=== PATIENT | male | born 1940 | race Caucasian/White ===

== ENCOUNTER 2020-07-02 01:55 | Outpatient (CLI) | payer OTHER, SELFPAY ==
[2020-07-02 19:19] LABS: SARS-CoV-2 RNA PCR Negative
== END 2020-07-02 01:56 | disposition home or self-care (01) ==
LOC: ANHCOVIDDT 01:56
PROVIDERS: PCP Internal Medicine; Visit Provider Internal Medicine Gastroenterology
DX: Z01.812 Encounter for preprocedural laboratory examination (principal); Z20.828 Contact with and (suspected) exposure to other viral communicable diseases
CPT/HCPCS: 87635; C9803; U0003

== ENCOUNTER 2020-07-04 01:16 | Day surgery (SDC) | payer OTHER, SELFPAY ==
[2020-07-01 12:27] VITALS: BMI 24.5
--- NOTE | 2020-07-04 09:54 | WPDGICN ---
Assessment and Plan Assessment and plan (1) Pharyngoesophageal dysphagia: Code(s): R13.14 - Dysphagia, pharyngoesophageal phase Status: Acute (2) PEG (percutaneous endoscopic gastrostomy) adjustment/replacement/removal: Code(s): Z43.1 - Encounter for attention to gastrostomy Status: Acute Assessment and Plan: Patient requires PEG tube for nutritional support. He has significant dysphagia after surgical resection of had neck cancer. And deformity subsequently. Because of deteriorating G-tube patient presents will have endoscopic replacement of PEG tube today. (3) Hx of malignant neoplasm of head and neck: Code(s): Z85.89 - Personal history of malignant neoplasm of other organs and systems Status: Acute GI Consult Note Consult date/time: 07/04/20 09:54 HPI: Nathaniel Guardado is a 79 year old male Seen in evaluation at the request of OFFICE CLERK ASSISTANT Abebe Fisher. Patient has a history of head and neck cancer. He has required a PEG tube for nutritional support. Continues to have difficulty swallowing after his surgery and resection of cancer. Patient has significant dysarthria as well. Peg tube was replaced in July of 2019. In his deteriorated. Replacement will be required. Patient has had difficulties with typical replacement PEG tubes the balloon appears to occlude his stomach. An endoscopic replacement will be required. Review of Systems Review of Systems: All systems reviewed & are unremarkable except as noted in HPI and below PMFSH Past Medical History Medical History (Updated 06/05/20 @ 09:17 by Abebe Fisher APRN) Cancer Diabetes HTN (hypertension) Hypercholesterolemia Family History Family History Father Acute myocardial infarction Social History Social History Smoking status: Never smoker Alcohol intake: never Substance use: never Substance use type: does not use Living arrangements: with family Spiritual care concerns: No Meds Home Medications and Allergies Home Medications Medication Instructions Recorded Confirmed Type aspirin 81 mg PO DAILY 08/08/19 07/01/20 History calcium carbonate [Calcium 600] 600 mg PO BID 08/08/19 07/01/20 History cholecalciferol (vitamin D3) 1,000 unit PO DAILY 08/08/19 07/01/20 History [Vitamin D3] hydrocodone-acetaminophen 1 tablet PO Q8H PRN 08/08/19 07/01/20 History ondansetron 4 mg disintegrating 4 mg PO Q6H PRN #10 tablet 10/03/19 07/01/20 Rx tablet levothyroxine 50 mcg tablet 50 mcg PO DAILY #90 tablet 03/17/20 07/01/20 Rx omeprazole 40 mg capsule,delayed 40 mg PO DAILY #90 cap 03/19/20 07/01/20 Rx release glipizide 2.5 mg tablet, extended 2.5 mg PO DAILY #90 tablet 05/13/20 07/01/20 Rx release 24 hr metformin 1,000 mg tablet 1,000 mg PO BID #180 tablet 05/23/20 07/01/20 Rx lisinopril 5 mg tablet 5 mg PO DAILY #90 tablet 06/11/20 07/01/20 Rx simvastatin 20 mg tablet 20 mg PO DAILY #90 tablet 06/11/20 07/01/20 Rx vitamin B complex [Super B-50 1 cap PO DAILY 07/01/20 07/01/20 History Complex] Allergies Allergy/AdvReac Type Severity Reaction Status Date / Time Penicillins Allergy Mild Rash Verified 07/01/20 11:51 Exam Narrative: Exam Narrative: Physical exam reveals patient to be alert. Vital signs stable. HEENT exam reveals deformity to his throat after surgical resection. Has significant dysarthria.. Lungs are clear to auscultation and percussion. Heart is without murmur or extra sounds. Abdominal exam reveals PEG tube in good position the tube itself is deteriorated.
[2020-07-04] MEDS: LACTATED RINGERS 1,000 ML 150 ML IV CONT (10:11)
[2020-07-04 10:13] VITALS: BP 174/105; PULSE 94; RESP 22; TEMP 36.6; O2SAT 96; BMI 23.4
[2020-07-04 10:24] LABS: Glucose Point of Care 107 (65-105)
--- NOTE | 2020-07-04 10:29 | WPDANESEPPF ---
Anes - Initial Pre Proc Eval Procedure: Operation Date: 07/04/20 10:30 Proposed Procedures p Percutaneous Endoscopic Gastrostomy Replacement - Vipul Leal MD Date/Time: 07/04/20 10:29 Surgeon: Vipul Leal MD Pre Op Diagnosis: Malfunctioning G-Tube Patient Data Age: 79 Gender: M Height: 5 ft 3 in Weight: 60 kg Last Vital Signs Temp 98 F 07/04/20 10:13 Pulse 94 07/04/20 10:13 Resp 22 H 07/04/20 10:13 BP 174/105 H 07/04/20 10:13 Pulse Ox 96 07/04/20 10:13 Allergies Allergy/AdvReac Type Severity Reaction Status Date / Time Penicillins Allergy Mild Rash Verified 07/01/20 11:51 Home Medications Medication Instructions Recorded Confirmed Type aspirin 81 mg PO DAILY 08/08/19 07/01/20 History calcium carbonate [Calcium 600] 600 mg PO BID 08/08/19 07/01/20 History cholecalciferol (vitamin D3) 1,000 unit PO DAILY 08/08/19 07/01/20 History [Vitamin D3] hydrocodone-acetaminophen 1 tablet PO Q8H PRN 08/08/19 07/01/20 History ondansetron 4 mg disintegrating 4 mg PO Q6H PRN #10 tablet 10/03/19 07/01/20 Rx tablet levothyroxine 50 mcg tablet 50 mcg PO DAILY #90 tablet 03/17/20 07/01/20 Rx omeprazole 40 mg capsule,delayed 40 mg PO DAILY #90 cap 03/19/20 07/01/20 Rx release glipizide 2.5 mg tablet, extended 2.5 mg PO DAILY #90 tablet 05/13/20 07/01/20 Rx release 24 hr metformin 1,000 mg tablet 1,000 mg PO BID #180 tablet 05/23/20 07/01/20 Rx lisinopril 5 mg tablet 5 mg PO DAILY #90 tablet 06/11/20 07/01/20 Rx simvastatin 20 mg tablet 20 mg PO DAILY #90 tablet 06/11/20 07/01/20 Rx vitamin B complex [Super B-50 1 cap PO DAILY 07/01/20 07/01/20 History Complex] Laboratory Tests 07/04/20 10:20 POC Capillary Glucose 107 mg/dl mg/dl (65-105) Patient hx anesthesia problems: none Family hx anesthesia problems: none PMFSH Past Medical History Medical History (Updated 07/04/20 @ 10:28 by Clifton Posadas MD) Adult hypothyroidism Cancer Diabetes Essential (primary) hypertension HTN (hypertension) Hypercholesterolemia Hyperlipidemia LDL goal <70 Type 2 diabetes mellitus without complication, without long-term current use of insulin Family History Family History Father Acute myocardial infarction Social History Social History Smoking status: Never smoker Alcohol intake: never Substance use: never Substance use type: does not use Living arrangements: with family Spiritual care concerns: No Anes - Eval Final PreProcedure Day of Procedure 07/04/20 10:29 Patient weight: normal Heart: regular rate and rhythm Lungs: clear to auscultation Airway: Mallampati scale class III Neurological: alert and oriented Last oral intake: >/= 8 hours ASA classification: IV Emergent: no Anesthetic plan: proceed Anesthesia type and monitoring: general GIVS and standard monitoring Informed Consent: The patient's anesthetic plan and its attendant risks and benefits were discussed with the patient/family/POA. Questions were solicited and answers provided to the satisfaction of the patient/family/POA.
[2020-07-04 11:18] VITALS: BP 103/68; PULSE 74; RESP 18; O2SAT 100
[2020-07-04 11:28] VITALS: BP 134/89; PULSE 74; RESP 18; O2SAT 100
[2020-07-04 11:38] VITALS: BP 144/95; PULSE 84; RESP 18; O2SAT 100
== END 2020-07-04 12:00 | disposition home or self-care (01) ==
PROVIDERS: PCP Internal Medicine; Visit Provider Internal Medicine Gastroenterology
PROC: 0DH63UZ Insertion of Feeding Device into Stomach, Percutaneous Approach (ICD-10-PCS; CPT 43246; principal; 2020-07-04 10:30)
DX: R13.14 Dysphagia, pharyngoesophageal phase (principal); Z43.1 Encounter for attention to gastrostomy; Z85.89 Personal history of malignant neoplasm of other organs and systems; I10 Essential (primary) hypertension; E78.00 Pure hypercholesterolemia, unspecified; E11.9 Type 2 diabetes mellitus without complications; Z79.82 Long term (current) use of aspirin; Z79.84 Long term (current) use of oral hypoglycemic drugs; E03.9 Hypothyroidism, unspecified
CPT/HCPCS: 43246; 99214; G0463; J2001; J2704; J7120

== ENCOUNTER 2020-07-07 14:21 | Inpatient (IN) | payer OTHER, SELFPAY ==
--- NOTE | ~2020-07-07 | XR_ITS ---
EXAMINATION: XR chest 1V portable INDICATION: Abdominal pain, recent PEG tube placement TECHNIQUE: Portable AP chest at 1452 hours COMPARISON: 07/13/2019 FINDINGS: The lung volumes are low. No acute airspace opacities are identified. The heart size is nor mal. Vertebroplasty change is noted in the midthoracic spine. There are surgical clips in the left ne ck. Chronic gaseous distention of the colon is noted. IMPRESSION: 1. No acute cardiopulmonary abnormality. Reviewed, dictated and finalized at location A.
--- NOTE | ~2020-07-07 | CT_ITS ---
EXAMINATION: CT abdomen pelvis w con EXAM DATE: 07/07/2020 15:34 INDICATION: Abdominal pain. TECHNIQUE: Spiral CT of the abdomen and pelvis was performed following intravenous injection of 100 m L Omnipaque 350. Axial, coronal and sagittal images were reviewed. The dose-length product (DLP) fo r this examination was 528.06 mGy-cm. The exposure was tailored according to patient size (auto mA e xposure control), and iterative reconstruction (ASIR) was used as additional dose reduction technique . Comparison is made to prior examination from 07/13/2019. FINDINGS: The liver, spleen, adrenal glands and pancreas are unremarkable. Gallbladder is unremarkab le. No biliary obstruction. Portal and splenic veins are patent. Kidneys enhance symmetrically. T here is no hydronephrosis. There are bilateral calyceal stones up to 5 mm. Patient has likely had pr ostatectomy. The bladder is unremarkable. There is no retroperitoneal or pelvic lymphadenopathy. There is moderate scattered arteriosclerotic disease. The appendix is not positively visualized. T here is no pericecal inflammatory change to suggest appendicitis. There is a gastrostomy tube in po sition. Some inflammation surrounding the gastrostomy tube tract, also several tiny foci of gas withi n this location. There is large amount of loose colonic stool and gas, correlate for diarrhea. This is throughout the colon, could be colonic ileus or gastroenteritis. No colonic wall edema or portal venous gas. The he art is normal in size. There are no pericardial or pleural effusions. Mild basilar bronchiectasis. There are no osteoblastic or osteolytic lesions identified. There is mild to moderate mid lumbar lev oscoliosis. IMPRESSION: 1. Large amount of loose colonic stool and gas, could be ileus or gastroenteritis. Correlate for timi rrhea. 2. Fat stranding along gastrostomy tract with several tiny foci of free intraperitoneal gas, could b e from recent tube manipulation or placement. No abscess. 3. Collateral nephrolithiasis. Reviewed, dictated and finalized at location A. IMPRESSION: 1. Large amount of loose colonic stool and gas, could be ileus or gastroenteri tis. Correlate for diarrhea. 2. Fat stranding along gastrostomy tract with several tiny foci of free intrap eritoneal gas, could be from recent tube manipulation or placement. No abscess. 3. Collateral nephrolithiasis.
--- NOTE | ~2020-07-07 | XR_ITS ---
EXAMINATION: XR G tube evaluation w imaging EXAM DATE: 07/07/2020 16:21 INDICATION: Gastrostomy tube evaluation. TECHNIQUE: Frontal projection(s) of the abdomen for interpretation. Comparison is made to prior exami nation from 09/24/2019. FINDINGS: Again there is severe distention of the colon. Also some moderately distended small bowel. Probably ileus or gastroenteritis. There is a gastrostomy tube in position. This has been injected with contrast. There is contrast outl ining normal rugal folds, pooling in the gastric cardia and gastric antrum. No evidence of extralumin al contrast. IMPRESSION: 1. Severely distended bowel, chronic finding. 2. Gastrostomy tube in position. Reviewed, dictated and finalized at location A.
--- NOTE | 2020-07-07 14:19 | ED.ABDPAIN ---
HPI - Abdominal Pain General Chief Complaint: Abdominal Pain Stated Complaint: abd pain Source: patient and EMS Mode of arrival: EMS Limitations: no limitations History of Present Illness HPI narrative: Patient is a 79-year-old male with a history of head and neck cancer, dysphasia, status post PEG tube replacement July 04, hypothyroidism, type 2 diabetes, hypertension who presents for evaluation of abdominal pain. Patient reports since PEG tube was replaced on the by Dr. Toscano, patient has had some associated abdominal pain and increased abdominal distention with feedings. He reports nausea and dry heaving. He reports constipation, decreased flatus as well. He reports mild abdominal distention, pain is aching in nature at times sharp throughout his abdomen. He denies fever or chills. No chest pain, rhinorrhea, congestion, or cough. No current shortness of breath. Patient denies any dysuria or hematuria. He reports minimal to no oral intake by mouth at this point. Related Data Home Medications Medication Instructions Recorded Confirmed aspirin 81 mg PO DAILY 08/08/19 07/01/20 calcium carbonate [Calcium 600] 600 mg PO BID 08/08/19 07/01/20 cholecalciferol (vitamin D3) 1,000 unit PO DAILY 08/08/19 07/01/20 [Vitamin D3] hydrocodone-acetaminophen 1 tablet PO Q8H PRN 08/08/19 07/01/20 vitamin B complex [Super B-50 1 cap PO DAILY 07/01/20 07/01/20 Complex] Allergies Allergy/AdvReac Type Severity Reaction Status Date / Time Penicillins Allergy Mild Rash Verified 07/01/20 11:51 Review of Systems Review of Systems: Narrative: CONSTITUTIONAL: Denies fever ENT: Denies rhinorrhea, congestion, sore throat, or otalgia. CARDIOVASCULAR: Denies chest pain, palpitations, or edema. RESPIRATORY: Denies cough or dyspnea. GASTROINTESTINAL: Reports abdominal pain, nausea, constipation GENITOURINARY: Denies dysuria or hematuria. SKIN: Denies rash or itching. MUSCULOSKELETAL: Denies back pain, joint pain, or myalgia. NEUROLOGIC: Denies headache, numbness, or weakness. [facility] Past Medical History Medical History (Updated 07/07/20 @ 19:46 by Abebe Cm MD) Adult hypothyroidism Cancer Diabetes Essential (primary) hypertension HTN (hypertension) Hypercholesterolemia Hyperlipidemia LDL goal <70 Type 2 diabetes mellitus without complication, without long-term current use of insulin Surgical History Surgical History (Updated 07/07/20 @ 19:42 by Abebe Cm MD) S/P percutaneous endoscopic gastrostomy (PEG) tube placement Family History Family History Father Acute myocardial infarction Social History Social History Smoking status: Never smoker Alcohol intake: never Substance use: never Substance use type: does not use Spiritual care concerns: No Exam Narrative: Exam Narrative: GENERAL: Awake, alert, conversant, chronically ill-appearing, elderly HEAD: Normocephalic, atraumatic. EYES: PERRLA and EOMI. ENT: Nares clear, no rhinorrhea or epistaxis. Mucous membranes dry. NECK: Supple. CHEST: No respiratory distress, breathing even and non labored HEART: Tachycardic rate, sinus rhythm ABDOMEN: Mildly distended, tender throughout, positive guarding, no rebound, PEG tube in place left upper quadrant, no active drainage, no excoriation EXTREMITIES: Normal range of motion. No edema. SKIN: Pale, dry, no rash. NEURO:No focal deficits. Alert and oriented x3 Course Vital Signs Vital signs: Vital Signs Temperature 36.6 C 07/07/20 14:20 Pulse Rate 121 H 07/07/20 14:20 Respiratory Rate 18 07/07/20 14:20 Blood Pressure 163/101 H 07/07/20 14:20 Pulse Oximetry 97 07/07/20 14:20 Temperature 36.6 C 07/07/20 14:20 Pulse Rate 113 H 07/07/20 19:23 Respiratory Rate 20 07/07/20 19:23 Blood Pressure 126/90 07/07/20 19:23 Pulse Oximetry 99 07/07/20 19:23 [facility] - Abd
[2020-07-07 14:20] VITALS: BP 163/101; PULSE 121; RESP 18; TEMP 36.6; O2SAT 97
--- NOTE | 2020-07-07 14:38 | ECG_ITS ---
Measurements Intervals [place] Rate: 120 P: 48 NE: 120 QRS: -42 QRSD: 90 T: 33 QT: 339 QTc: 479 Interpretive Statements SINUS TACHYCARDIA VENTRICULAR PREMATURE COMPLEX LEFT AXIS DEVIATION POOR R WAVE PROGRESSION, ANTERIOR LEADS BASELINE ARTIFACT- I, II, III, AVR, AVL, AVF, V1, V3, V6 ABNORMAL ECG Electronically Signed On 07-07-2020 14:59:45 CDT by Estrada Correa D.O.
[2020-07-07 14:55] LABS: Basophils Percent Auto 0.2 % (0.2-1.2); Eosinophils Absolute Auto 0.1 K/mm3 (0-0.3); Eosinophils Percent Auto 0.5 % (0-4.4); Hematocrit 38.8 % (42.0-52.0); Immature Granulocyte Absolute 0.08 K/mm3 (0.00-0.031); Immature Granulocyte Percent A 0.6 % (0-0.5); Lymphocytes Absolute Auto 0.29 K/mm3 (0.9-3.2); Lymphocytes Percent Auto 2.3 % (18.3-44.2); Mean Corpuscular HGB Conc 33.5 g/dl (32-36); Mean Corpuscular Hemoglobin 32.5 pg (26-34); Mean Platelet Volume 10.7 fl (7.4-10.4); Monocytes Percent Auto 7.8 % (2.6-8.5); Neutrophils Absolute Auto 11.3 K/mm3 (1.3-6.7); Neutrophils Percent Auto 88.6 % (45.5-73.1); Platelet Count Result 242 k/mm3 (150-375); Red Cell Distribution Width 12.9 % (11.5-14.5); White Blood Count 12.8 K/mm3 (4.5-10.0)
[2020-07-07 15:00] LABS: Alanine Aminotransferase 18 U/L (4-50); Albumin Level 4.5 g/dL (3.5-5.1); Alkaline Phosphatase 82 U/L (38-126); Anion Gap 15 mmol/L (8-16); Aspartate Amino Transferase 23 U/L (17-59); Bilirubin,Total 0.5 mg/dL (0.2-1.3); Blood Urea Nitrogen 32 mg/dL (9-20); Calcium 10.9 mg/dL (8.4-10.2); Carbon Dioxide 30 mmol/L (22-30); Chloride 90 mmol/L (98-107); Estimated CRCL calculation 72 ml/min; Estimated Glomerular Filt Rate > 60; Glucose 163 mg/dL (75-110); Lipase 27 U/L (23-300); Potassium 4.5 mmol/L (3.4-5.0); Sodium 135 mmol/L (137-145)
[2020-07-07 15:08] LABS: Lactic Acid Reflex 3.7 mmol/L (0.7-2.1)
[2020-07-07 15:14] LABS: Prothrombin Time 12.9 Seconds (11.1-14.7)
[2020-07-07 15:15] LABS: Partial Thromboplastin Time 30.7 SECONDS (22.3-36.8)
[2020-07-07] MEDS: MORPHINE SULFATE (*CRX) 4 MG/ML INJ IV PUSH (15:20)
[2020-07-07] MEDS: SODIUM CHLORIDE 0.9% IV 1,000 ML 999 ML IV CONT (15:20)
[2020-07-07] MEDS: ONDANSETRON INJ 4 MG/2 ML VIAL IV PUSH (15:20)
[2020-07-07] MEDS: SODIUM CHLORIDE 0.9% IV 500 ML 999 ML IV CONT (15:21)
[2020-07-07] MEDS: metroNIDAZOLE 500 MG/ISO 100ML 500 MG/100 ML BAG 100 MG IVPB ×2 (16:08→21:23)
[2020-07-07 16:28] LABS: Add Urine Microscopic? YES; Appearance Urine Clear (Clear); Bacteria Urine Trace /hpf; Bilirubin Urine Negative (Negative); Blood Urine Negative (Negative); Color Urine Yellow (Yellow); Glucose Urine UA Negative (Negative); Ketones Urine Negative (Negative); Leukocyte Esterase Ur Negative LEU/UL (Negative); Mucus Urine Rare /lpf; Nitrate Urine Negative (Negative); Protein Urine 1+ mg/dL (Negative); RBC Urine 0-2 /hpf (0-2); Urobilinogen Urine Negative mg/dL (<2.0); WBC Urine 0-3 /hpf
[2020-07-07 16:32] LABS: Specific Grav Ur 1.039 (1.001-1.035)
--- NOTE | 2020-07-07 16:41 | WPDGICN ---
Assessment and Plan Assessment and plan (1) Gastrostomy status: Code(s): Z93.1 - Gastrostomy status Status: Acute Assessment and Plan: CT scan of the abdomen reveals a small amount of air at the gastric cutaneous PEG site. Says back that this may represent localized infection. Plan is for Gastrografin study through the G-tube to document that it is in good position. Broad-spectrum antibiotics are encouraged for interval course of therapy. We will follow with you. Peg tube feeding should be held at this time. (2) Ileus: Code(s): K56.7 - Ileus, unspecified Status: Acute Assessment and Plan: Patient appears to have an ileus. Appears to have developed after replacement of the PEG tube. Likely from irritation at the PEG site manipulation. Plan is for patient be NPO. Because of head neck cancer placement of an NG tube may be dangerous. Plan is to open the G-tube and hopefully decompress the stomach through the G-tube. We will follow with you. Plan to monitor with serial KUB ease. (3) Hx of malignant neoplasm of head and neck: Code(s): Z85.89 - Personal history of malignant neoplasm of other organs and systems Status: Acute (4) Personal history of malignant neoplasm of prostate: Code(s): Z85.46 - Personal history of malignant neoplasm of prostate Status: Acute GI Consult Note Consult date/time: 07/07/20 16:41 HPI: Nathaniel Guardado is a 79 year old male I am asked to see at the request of the ER. Patient has abdominal distention and pain after PEG replacement on Tuesday 4 days ago. Patient has a distant history of head and neck cancer. He subsequently required to PEG tube placement. Peg tube had deteriorated and was replaced on Tuesday 4 days ago by an endoscopic replacement. 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 Patient tolerated the tube however he has developed abdominal distention with associated with regurgitation nausea. He has tenderness at the PEG site. Review of Systems Review of Systems: All systems reviewed & are unremarkable except as noted in HPI and below PMFSH Past Medical History Medical History Adult hypothyroidism Cancer Diabetes Essential (primary) hypertension HTN (hypertension) Hypercholesterolemia Hyperlipidemia LDL goal <70 Type 2 diabetes mellitus without complication, without long-term current use of insulin Family History Family History Father Acute myocardial infarction Social History Social History Smoking status: Never smoker Alcohol intake: never Substance use: never Substance use type: does not use Spiritual care concerns: No Meds Home Medications and Allergies Home Medications Medication Instructions Recorded Confirmed Type aspirin 81 mg PO DAILY 08/08/19 07/01/20 History calcium carbonate [Calcium 600] 600 mg PO BID 08/08/19 07/01/20 History cholecalciferol (vitamin D3) 1,000 unit PO DAILY 08/08/19 07/01/20 History [Vitamin D3] hydrocodone-acetaminophen 1 tablet PO Q8H PRN 08/08/19 07/01/20 History ondansetron 4 mg disintegrating 4 mg PO Q6H PRN #10 tablet 10/03/19 07/01/20 Rx tablet levothyroxine 50 mcg tablet 50 mcg PO DAILY #90 tablet 03/17/20 07/01/20 Rx omeprazole 40 mg capsule,delayed 40 mg PO DAILY #90 cap 03/19/20 07/01/20 Rx release glipizide 2.5 mg tablet, extended 2.5 mg PO DAILY #90 tablet 05/13/20 07/01/20 Rx release 24 hr metformin 1,000 mg tablet 1,000 mg PO BID #180 tablet 05/23/20 07/01/20 Rx lisinopril 5 mg tablet 5 mg PO DAILY #90 tablet 06/11/20 07/01/20 Rx simvastatin 20 mg tablet 20 mg PO DAILY #90 tablet 06/11/20 07/01/20 Rx vitamin B complex [Super B-50 1 cap PO DAILY 07/01/20 07/01/20 History Complex] Allerg
[2020-07-07 16:56] VITALS: BP 142/103; PULSE 118; RESP 20; O2SAT 93
[2020-07-07] MEDS: TETANUS,DIPHTHERIA,AC PERTUSSIS ADULT (0.5 ML) BOOSTRIX IM (17:37)
[2020-07-07 17:57] LABS: Reflex Lactic Acid Yes or No Add Lactic
--- NOTE | 2020-07-07 17:59 | PC.NURSE ---
valle cath bag attached to g-tube. gastric content returned
[2020-07-07 19:23] VITALS: BP 126/90; PULSE 113; RESP 20; O2SAT 99
--- NOTE | 2020-07-07 19:37 | PM.IMHP ---
H&P: HPI History of Present Illness Date/Time: 07/07/20 19:37 Chief complaint: Ileus, sepsis, dehydration Narrative: This is a pleasant 79-year-old diabetic male with known history of previous head and neck cancer status post PEG tube replacement on July 04, 2012 secondary to dysphagia who presented to the hospital [facility] with left-sided abdominal pain. The patient mentions that he had his PEG tube replaced this past Tuesday and the very next day he started to notice he had abdominal distension and left-sided abdominal discomfort. Since then he has had increasing left-sided abdominal discomfort, nausea and dry heaving. He was giving himself tube feedings through his new PEG tube this morning around 10:00 a.m. The patient denies any fever, chills, vomiting, cough, hematemesis, shortness of breath, chest pain, dysuria, hematuria, diarrhea, or rectal bleeding. The patient was evaluated emergency room this evening and did meet criteria for sepsis with tachycardia, tachypnea, leukocytosis and elevated lactic acid. Patient was treated with IV antibiotics to cover for enteric bacteria. CT abdomen pelvis demonstrated a large amount of loose colonic stool and gas. Fat stranding along gastrostomy tract with several tiny foci of free intraperitoneal gas, could be from recent tube manipulation or placement. No abscess. The patient has his PEG tube attached to low intermittent suction at this time. Gastroenterology has been consulted by ER provider has already evaluated the patient. We been asked admit the patient to the hospital for further treatment. Review of Systems Review of Systems: All systems reviewed & are unremarkable except as noted in HPI and below PMFSH Past Medical History Medical History (Updated 07/07/20 @ 19:46 by Abebe Cm MD) Adult hypothyroidism Cancer Diabetes Essential (primary) hypertension HTN (hypertension) Hypercholesterolemia Hyperlipidemia LDL goal <70 Type 2 diabetes mellitus without complication, without long-term current use of insulin Surgical History Surgical History (Updated 07/07/20 @ 19:42 by bAebe Cm MD) S/P percutaneous endoscopic gastrostomy (PEG) tube placement Family History Family History (Updated 07/07/20 @ 21:19 by Smiley Mosher RN) Father Acute myocardial infarction Congestive heart failure Hypertension Mother Hypertension Social History Social History Smoking status: Never smoker Second hand tobacco smoke exposure: Yes (distant history) Alcohol intake: never Substance use: never Substance use type: does not use Spiritual care concerns: No Meds Home Medications and Allergies Home Medications Medication Instructions Recorded Confirmed Type aspirin 81 mg PO QPM 08/08/19 07/07/20 History calcium carbonate [Calcium 600] 600 mg PO BID 08/08/19 07/07/20 History cholecalciferol (vitamin D3) 1,000 unit PO QPM 08/08/19 07/07/20 History [Vitamin D3] hydrocodone-acetaminophen 1 tablet PO TID PRN 08/08/19 07/07/20 History ondansetron 4 mg disintegrating 4 mg PO Q6H PRN #10 tablet 10/03/19 07/07/20 Rx tablet levothyroxine 50 mcg tablet 50 mcg PO DAILY #90 tablet 03/17/20 07/07/20 Rx glipizide 2.5 mg tablet, extended 2.5 mg PO DAILY #90 tablet 05/13/20 07/07/20 Rx release 24 hr metformin 1,000 mg tablet 1,000 mg PO BID #180 tablet 05/23/20 07/07/20 Rx vitamin B complex [Super B-50 1 cap PO QPM 07/01/20 07/07/20 History Complex] lisinopril 5 mg PO QPM 07/07/20 07/07/20 History omeprazole 40 mg PO QPM 07/07/20 07/07/20 History simvastatin 20 mg PO QPM 07/07/20 07/07/20 History Allergies Allergy/AdvReac Type Severity Reaction Status Date / Time Penicillins Allergy Mild Rash Verified 07/01/20 11:51 Vital Signs Vital Signs - 24 hr 07/07/20 14:20 07/07/20 16:56 07/07/20 19:23 Temperature 36.6 C Pulse Rate 121 H 118 H 113 H Respiratory Rate 18 20 20 B
[2020-07-07 19:49] VITALS: BP 109/76; PULSE 109; RESP 18; TEMP 36.3; O2SAT 95
[2020-07-07 20:00] VITALS: PULSE 112
[2020-07-07 20:29] VITALS: BMI 24.5
[2020-07-07] MEDS: SODIUM CHLORIDE 0.9% IV 1,000 ML 125 ML IV CONT (20:55)
[2020-07-07] MEDS: MORPHINE SULFATE (*CRX) 2 MG/ML INJ IV PUSH (20:56)
--- NOTE | 2020-07-07 21:51 | ADMGEN ---
This patient, Nathaniel Guardado, was admitted to IMU Room 231-01 at 2020. Patient/family oriented to hospital policies and general routines including ID bracelet, bed and alarms, visiting hours, pain management, procedures, bathroom and other care routines, personal items, smoking policy, room service/diet, and visiting hours. Valuables list has been completed. Information on how to activate the Rapid Response Team has been discussed. Patient/Family are encouraged to report perceived risks to care and to ask questions if they do not understand what they are told or what they should do.
[2020-07-07 22:00] VITALS: PULSE 102
[2020-07-07 23:42] LABS: Glucose Point of Care 92 (65-105)
[2020-07-08] VITALS (12 sets, daily range): BP systolic 108–166; BP diastolic 75–112; PULSE 90–111; RESP 16–20; TEMP 36.3–36.8; O2SAT 94–96
[2020-07-08 00:29] LABS: Lactic Acid Reflex 0.7 mmol/L (0.7-2.1)
[2020-07-08] MEDS: MORPHINE SULFATE (*CRX) 2 MG/ML INJ IV PUSH ×2 (01:59→05:38)
[2020-07-08] MEDS: metroNIDAZOLE 500 MG/ISO 100ML 500 MG/100 ML BAG 100 MG IVPB ×4 (03:37→20:12)
[2020-07-08] MEDS: LEVOTHYROXINE SODIUM INJ 100 MCG/5 ML VIAL 25 MCG IV PUSH (05:32)
[2020-07-08 06:02] LABS: Basophils Percent Auto 0.4 % (0.2-1.2); Eosinophils Absolute Auto 0.1 K/mm3 (0-0.3); Eosinophils Percent Auto 1.7 % (0-4.4); Hematocrit 32.2 % (42.0-52.0); Hemoglobin 10.8 g/dL (14.0-18.0); Immature Granulocyte Absolute 0.04 K/mm3 (0.00-0.031); Immature Granulocyte Percent A 0.5 % (0-0.5); Lymphocytes Absolute Auto 0.32 K/mm3 (0.9-3.2); Lymphocytes Percent Auto 4.1 % (18.3-44.2); Mean Corpuscular HGB Conc 33.5 g/dl (32-36); Mean Corpuscular Hemoglobin 31.4 pg (26-34); Mean Corpuscular Volume 93.6 fl (80-100); Mean Platelet Volume 10.9 fl (7.4-10.4); Monocytes Absolute Auto 0.8 K/mm3 (0.1-0.6); Monocytes Percent Auto 9.9 % (2.6-8.5); Neutrophils Absolute Auto 6.5 K/mm3 (1.3-6.7); Neutrophils Percent Auto 83.4 % (45.5-73.1); Platelet Count Result 219 k/mm3 (150-375); Red Blood Count 3.44 M/mm3 (4.6-6.20); Red Cell Distribution Width 12.7 % (11.5-14.5); White Blood Count 7.8 K/mm3 (4.5-10.0)
[2020-07-08 06:25] LABS: Anion Gap 10 mmol/L (8-16); Blood Urea Nitrogen 22 mg/dL (9-20); Carbon Dioxide 28 mmol/L (22-30); Chloride 100 mmol/L (98-107); Estimated CRCL calculation 71 ml/min; Estimated Glomerular Filt Rate > 60; Glucose 106 mg/dL (75-110); Magnesium 1.2 mg/dL (1.6-2.3); Potassium 3.6 mmol/L (3.4-5.0); Sodium 138 mmol/L (137-145)
[2020-07-08] MEDS: SODIUM CHLORIDE 0.9% IV 1,000 ML 125 ML IV CONT ×2 (06:40→16:44)
--- NOTE | 2020-07-08 08:53 | PM.IMPN ---
Progress Note: A&P Assessment and Plan (1) Adult hypothyroidism: Code(s): E03.9 - Hypothyroidism, unspecified Status: Chronic Assessment and Plan: Unchanged, continue home meds. Continue to monitor. (2) Chronic anemia: Code(s): D64.9 - Anemia, unspecified Status: Chronic Assessment and Plan: Unchanged, continue to monitor. (3) Elevated lactic acid level: Code(s): R79.89 - Other specified abnormal findings of blood chemistry Status: Acute Assessment and Plan: Repeat lactic acid level is normal, likely was elevated as a result from dehydration. (4) Postoperative ileus: Code(s): K91.89 - Other postprocedural complications and disorders of digestive system; K56.7 - Ileus, unspecified Status: Acute Assessment and Plan: Appreciate GI note will follow recs. Resolving. Continue to hold feeding thru tube (5) Sepsis: Qualifiers: Sepsis acute organ dysfunction status: without acute organ dysfunction Sepsis type: sepsis due to unspecified organism Qualified Code(s): A41.9 - Sepsis, unspecified organism Code(s): A41.9 - Sepsis, unspecified organism Status: Acute Assessment and Plan: Ruled out, no left shift, no source so far, clinically no findings, lactic acid back to normal. (6) Dehydration: Code(s): E86.0 - Dehydration Status: Acute Assessment and Plan: Continue fluids, I/O's daily. (7) Gastrostomy status: Code(s): Z93.1 - Gastrostomy status Status: Acute Assessment and Plan: CT abdomen and pelvis results noted. Recent PEG tube exchange. Continue local care. Continue to flush. (8) Chronic bilateral low back pain without sciatica: Code(s): M54.5 - Low back pain; G89.29 - Other chronic pain Status: Acute Assessment and Plan: Stable, no pain currently. (9) Gastro-esophageal reflux disease without esophagitis: Code(s): K21.9 - Gastro-esophageal reflux disease without esophagitis Status: Acute Assessment and Plan: Stable, continue to monitor. (10) PEG (percutaneous endoscopic gastrostomy) adjustment/replacement/removal: Code(s): Z43.1 - Encounter for attention to gastrostomy Status: Acute Assessment and Plan: Patient has some tenderness around the insertion site but no discharge is present or discoloration. (11) Hx of malignant neoplasm of head and neck: Code(s): Z85.89 - Personal history of malignant neoplasm of other organs and systems Status: Chronic Assessment and Plan: S/p neck surgery. Will follow up in the outpatient setting. Subjective Date/time seen: 07/08/20 08:53 Patient states that he feels much better than yesterday, has some tenderness around the PEG tube site. Review of Systems Review of Systems: Narrative: Abdominal pain and distention s/p PEG tube exchange. Constitutional: Comments: No fevers, no rigors, no chills. Eyes: Comments: No changes on his vision. ENT: Comments: Dysphagia secondary to head neck CA s/p surgery. Cardiovascular: Comments: No chest pain, no otrthopnea, no sob, no leg swelling. Respiratory: Comments: No sob, no cough, no sputum production. Gastrointestinal: Gastrointestinal: Reports abdominal pain and Reports dysphagia Genitourinary: Comments: No pain or burning with urination. Musculoskeletal: Comments: No body aches, no joint swelling. Integumentary/Breasts: Comments: No rashes, no discoloration, no ulcers. Neurologic: Comments: No sensory motor deficit. Psychiatric: Comments: No weird thoughts or ideas. Endocrine: Comments: No increased thirst, no weight loss or weight gsin, no heat or cold intolerance. Hematologic/Lymphatic: Comments: No lymphadenopathies. Exam Const: General: cooperative, comfortable, no acute distress, well developed, alert, awake and well groomed Nutritional Appearance: average body habitus and well nourished Orientation/
[2020-07-08] MEDS: MAGNESIUM SULF 2 GM/WATER 50ML 2 GM/50 ML BAG IVPB (10:17)
[2020-07-08 12:26] LABS: Glucose Point of Care 148 (65-105)
--- NOTE | 2020-07-08 12:46 | WPDGIPROGNO ---
Progress Note: A&P Additional Plan Patient alert this morning. A little bit more comfortable. States he passed some flatus. No bowel movement. Physical exam reveals patient be alert and comfortable. Surgical changes to jaw and throat are identified. Lungs are clear. Heart without murmur. Abdomen bowel sounds are absent. G-tube site appears clean mild tenderness at this site. Abdomen tympanic with no masses noted. Impression 1. Ileus. Appears related to recent G-tube replacement. Plan is for a trial of IV Reglan. Keep patient NPO. Try to decompress through the G-tube. NG tube would not be feasible given his head neck cancer surgery. 2. Pain at the PEG tube site. No obvious infection but will keep on antibiotics empirically for possible infectious etiology to his discomfort. 3. Head neck cancer status post surgery. Accounts for patient's oropharyngeal dysphagia and inability to swallow. No active cancer at this time. Plan is to continue supportive care till ileus resolves will start IV Reglan and continue antibiotics. Subjective Date/time seen: 07/08/20 12:46 Objective Data Vital Signs Vital Signs: Vital Signs - 24 hr 07/07/20 14:20 07/07/20 16:56 07/07/20 19:23 Temperature 97.8 F Pulse Rate 121 H 118 H 113 H Respiratory Rate 18 20 20 Blood Pressure 163/101 H 142/103 H 126/90 Pulse Oximetry 97 93 99 07/07/20 19:49 07/07/20 20:00 07/07/20 22:00 Temperature 97.3 F L Pulse Rate 109 H 112 H 102 H Respiratory Rate 18 Blood Pressure 109/76 Pulse Oximetry 95 07/08/20 00:00 07/08/20 02:00 07/08/20 04:00 Temperature 97.6 F 97.7 F Pulse Rate 101 H 111 H 99 Respiratory Rate 16 18 Blood Pressure 108/75 147/94 H Pulse Oximetry 94 96 07/08/20 06:00 07/08/20 08:00 07/08/20 10:00 Temperature 97.7 F Pulse Rate 104 H 101 H 100 Respiratory Rate 20 Blood Pressure 148/105 H Pulse Oximetry 96 Intake/Output Intake/Output: Intake & Output 07/05/20 07/06/20 07/07/20 07/08/20 23:59 23:59 23:59 23:59 Intake Total 2200 1100 Output Total 300 1000 Balance 1900 100 Meds/Results Medications: Active Medications Generic Name Dose Route Start Last Admin Trade Name Freq PRN Reason Stop Dose Admin Dextrose 12.5 gm 07/07/20 19:51 Dextrose 50% 25 Gm/50 Ml Syringe IV PUSH PRN PRN Hypoglycemia Protocol Glucagon 1 mg 07/07/20 19:51 Glucagon For Inj 1 Mg Vial IM PRN PRN Hypoglycemia Protocol Levofloxacin/Dextrose 750 mg in 150 mls @ 100 mls/hr 07/08/20 17:00 Levaquin 750 Mg/D5w 150 Ml IVPB Q24H DAISY Metronidazole 500 mg in 100 mls @ 100 mls/hr 07/07/20 22:00 07/08/20 10:34 Flagyl 500 Mg/Iso Soln 100 Ml IVPB 100 mls/hr Q6H DAISY Administration Vancomycin HCl 1,250 mg in 250 mls @ 200 mls/hr 07/08/20 10:00 07/08/20 10:21 Vancomycin 1,250 Mg/D5w 250 Ml IVPB 200 mls/hr Q18H DAISY Administration Sodium Chloride 1,000 mls @ 125 mls/hr 07/07/20 17:35 07/08/20 06:40 Normal Saline Iv IV CONT 125 mls/hr .Q8H DAISY Administration Dextrose 1,000 mls @ 100 mls/hr 07/07/20 19:51 Dextrose 5% 1,000 Ml IVPB PRN PRN Hypoglycemia Protocol Insulin Aspart 2 - 5 units 07/08/20 00:00 07/08/20 06:41 Insulin Aspart (*Bkc) 100 Units/Ml SUB-Q Not Given Q6HR [facility] Protocol Levothyroxine Sodium 25 mcg 07/08/20 06:30 07/08/20 05:32 Levothyroxine Sodium Inj 100 Mcg/5 Ml Vial IV PUSH 25 mcg DAILY@0630 DAISY Administration Lisinopril 5 mg 07/08/20 18:00 Lisinopril 5 Mg Tablet PO QPM DAISY Metoclopramide HCl 5 mg 07/08/20 18:00 Metoclopramide Hcl Inj 10 Mg/2 Ml Vial IV PUSH Q6HR [facility] Pantoprazole Sodium 40 mg 07/08/20 21:00 Pantoprazole 40 Mg Tablet PO HS [facility] Radiology Results: ITS Impressions Chest X-Ray 07/07/20 14:52 IMPRESSION: 1. No acute cardiopulmonary abnormality. Abdomen/Pelvis CT 07/07/20 15:42 IMPRESSION:
[2020-07-08] MEDS: lisinopriL 5 MG TABLET PO (18:31)
[2020-07-08] MEDS: METOCLOPRAMIDE HCL INJ 10 MG/2 ML VIAL 5 MG IV PUSH ×2 (18:31→23:28)
[2020-07-08 18:34] LABS: Glucose Point of Care 104 (65-105)
[2020-07-08] MEDS: PANTOPRAZOLE 40 MG TABLET PO (20:12)
[2020-07-08 23:36] LABS: Glucose Point of Care 73 (65-105)
[2020-07-09] MEDS: SODIUM CHLORIDE 0.9% IV 1,000 ML 125 ML IV CONT ×2 (02:37→16:45)
[2020-07-09] MEDS: metroNIDAZOLE 500 MG/ISO 100ML 500 MG/100 ML BAG 100 MG IVPB ×4 (03:51→21:01)
[2020-07-09 03:57] VITALS: BP 110/74; PULSE 84; RESP 16; TEMP 36; O2SAT 98
[2020-07-09] MEDS: LEVOTHYROXINE SODIUM INJ 100 MCG/5 ML VIAL 25 MCG IV PUSH (06:01)
[2020-07-09] MEDS: METOCLOPRAMIDE HCL INJ 10 MG/2 ML VIAL 5 MG IV PUSH ×3 (06:01→17:58)
[2020-07-09 06:09] LABS: Glucose Point of Care 90 (65-105)
[2020-07-09 08:00] VITALS: BP 147/90; PULSE 93; RESP 14; TEMP 36.6; O2SAT 98
[2020-07-09 09:25] LABS: Basophils Percent Auto 0.7 % (0.2-1.2); Eosinophils Absolute Auto 0.2 K/mm3 (0-0.3); Eosinophils Percent Auto 3.5 % (0-4.4); Hematocrit 33.8 % (42.0-52.0); Hemoglobin 11.3 g/dL (14.0-18.0); Immature Granulocyte Absolute 0.04 K/mm3 (0.00-0.031); Immature Granulocyte Percent A 0.7 % (0-0.5); Lymphocytes Absolute Auto 0.53 K/mm3 (0.9-3.2); Lymphocytes Percent Auto 9.7 % (18.3-44.2); Mean Corpuscular HGB Conc 33.4 g/dl (32-36); Mean Corpuscular Hemoglobin 31.9 pg (26-34); Mean Corpuscular Volume 95.5 fl (80-100); Mean Platelet Volume 10.2 fl (7.4-10.4); Monocytes Absolute Auto 0.7 K/mm3 (0.1-0.6); Monocytes Percent Auto 13.5 % (2.6-8.5); Neutrophils Absolute Auto 3.9 K/mm3 (1.3-6.7); Neutrophils Percent Auto 71.9 % (45.5-73.1); Platelet Count Result 233 k/mm3 (150-375); Red Blood Count 3.54 M/mm3 (4.6-6.20); Red Cell Distribution Width 12.8 % (11.5-14.5); White Blood Count 5.5 K/mm3 (4.5-10.0)
--- NOTE | 2020-07-09 09:27 | WPDGIPROGNO ---
Progress Note: A&P Additional Plan Patient feels much better today. Passing flatus and bowel movement. Physical exam reveals patient be alert. Vital signs stable he is afebrile and anicteric. Lungs are clear. Heart without murmur. Abdomen much softer bowel sounds are present. Minimal tenderness PEG tube site. Impression 1. Resolved ileus. Plan to advance tube feedings today. Discharge if tube feedings tolerated. 2. Peg site pain. Cannot exclude infection will continue oral antibiotics for 1 week after discharge. 3. History of head and neck cancer. Residual oropharyngeal dysphagia remains. Subjective Date/time seen: 07/09/20 09:27 Objective Data Vital Signs Vital Signs: Vital Signs - 24 hr 07/08/20 10:00 07/08/20 12:00 07/08/20 14:00 Temperature 97.8 F Pulse Rate 100 101 H 99 Respiratory Rate 16 Blood Pressure 156/112 H Pulse Oximetry 95 07/08/20 17:09 07/08/20 19:08 07/08/20 20:00 Temperature 97.4 F L 98.3 F Pulse Rate 103 H 90 90 Respiratory Rate 16 16 16 Blood Pressure 166/94 H 149/97 H Pulse Oximetry 96 95 95 07/08/20 23:44 07/09/20 03:57 07/09/20 08:00 Temperature 98.1 F 96.8 F L 98 F Pulse Rate 92 84 93 Respiratory Rate 16 16 14 Blood Pressure 120/78 110/74 147/90 H Pulse Oximetry 95 98 98 Intake/Output Intake/Output: Intake & Output 07/06/20 07/07/20 07/08/20 07/09/20 23:59 23:59 23:59 23:59 Intake Total 2200 2850 1350 Output Total 300 2700 500 Balance 1900 150 850 Meds/Results Medications: Active Medications Generic Name Dose Route Start Last Admin Trade Name Freq PRN Reason Stop Dose Admin Dextrose 12.5 gm 07/07/20 19:51 Dextrose 50% 25 Gm/50 Ml Syringe IV PUSH PRN PRN Hypoglycemia Protocol Glucagon 1 mg 07/07/20 19:51 Glucagon For Inj 1 Mg Vial IM PRN PRN Hypoglycemia Protocol Levofloxacin/Dextrose 750 mg in 150 mls @ 100 mls/hr 07/08/20 17:00 07/08/20 18:25 Levaquin 750 Mg/D5w 150 Ml IVPB Infused Q24H DAISY Infusion Metronidazole 500 mg in 100 mls @ 100 mls/hr 07/07/20 22:00 07/09/20 04:51 Flagyl 500 Mg/Iso Soln 100 Ml IVPB Infused Q6H DAISY Infusion Vancomycin HCl 1,250 mg in 250 mls @ 200 mls/hr 07/08/20 10:00 07/09/20 05:07 Vancomycin 1,250 Mg/D5w 250 Ml IVPB Infused Q18H DAISY Infusion Sodium Chloride 1,000 mls @ 125 mls/hr 07/07/20 17:35 07/09/20 02:37 Normal Saline Iv IV CONT 125 mls/hr .Q8H DAISY Administration Dextrose 1,000 mls @ 100 mls/hr 07/07/20 19:51 Dextrose 5% 1,000 Ml IVPB PRN PRN Hypoglycemia Protocol Insulin Aspart 2 - 5 units 07/08/20 00:00 07/09/20 06:06 Insulin Aspart (*Bkc) 100 Units/Ml SUB-Q Not Given Q6HR DAISY Protocol Levothyroxine Sodium 25 mcg 07/08/20 06:30 07/09/20 06:01 Levothyroxine Sodium Inj 100 Mcg/5 Ml Vial IV PUSH 25 mcg DAILY@0630 DAISY Administration Lisinopril 5 mg 07/08/20 18:00 07/08/20 18:31 Lisinopril 5 Mg Tablet PO 5 mg QPM DAISY Administration Metoclopramide HCl 5 mg 07/08/20 18:00 07/09/20 06:01 Metoclopramide Hcl Inj 10 Mg/2 Ml Vial IV PUSH 5 mg Q6HR DAISY Administration Pantoprazole Sodium 40 mg 07/08/20 21:00 07/08/20 20:12 Pantoprazole 40 Mg Tablet PO 40 mg HS DAISY Administration Radiology Results: ITS Impressions Chest X-Ray 07/07/20 14:52 IMPRESSION: 1. No acute cardiopulmonary abnormality. Abdomen/Pelvis CT 07/07/20 15:42 IMPRESSION: 1. Large amount of loose colonic stool and gas, could be ileus or gastroenteritis. Correlate for diarrhea. 2. Fat stranding along gastrostomy tract with several tiny foci of free intraperitoneal gas, could be from recent tube manipulation or placement. No abscess. 3. Collateral nephrolithiasis. Contrast Injection Evaluation 07/07/20 16:26 IMPRESSION: 1. Severely distended bowel, chronic finding. 2. Gastrostomy tube in position. Labs Labs: Labor
[2020-07-09 09:39] VITALS: BMI 25.8
[2020-07-09 09:42] LABS: Anion Gap 15 mmol/L (8-16); Blood Urea Nitrogen 18 mg/dL (9-20); Calcium 7.8 mg/dL (8.4-10.2); Carbon Dioxide 22 mmol/L (22-30); Chloride 99 mmol/L (98-107); Estimated CRCL calculation 71 ml/min; Estimated Glomerular Filt Rate > 60; Glucose 89 mg/dL (75-110); Potassium 3.8 mmol/L (3.4-5.0); Sodium 136 mmol/L (137-145)
--- NOTE | 2020-07-09 10:56 | PM.IMPN ---
Progress Note: A&P Assessment and Plan (1) Postoperative ileus: Code(s): K91.89 - Other postprocedural complications and disorders of digestive system; K56.7 - Ileus, unspecified Status: Acute Assessment and Plan: Improved, patient is having significant output thru PEG tube. Will continue to monitor Daily BMP Replace lytes as needed (2) Chronic anemia: Code(s): D64.9 - Anemia, unspecified Status: Chronic Assessment and Plan: Stable. Continue to monitor. (3) Elevated lactic acid level: Code(s): R79.89 - Other specified abnormal findings of blood chemistry Status: Acute Assessment and Plan: Resolved Likely secondary to dehydration. IV fluids running. (4) Sepsis: Qualifiers: Sepsis acute organ dysfunction status: without acute organ dysfunction Sepsis type: sepsis due to unspecified organism Qualified Code(s): A41.9 - Sepsis, unspecified organism Code(s): A41.9 - Sepsis, unspecified organism Status: Acute Assessment and Plan: Ruled out Negative sepsis work up thus far (5) Ileus: Code(s): K56.7 - Ileus, unspecified Status: Acute Assessment and Plan: Resolving. (6) Dehydration: Code(s): E86.0 - Dehydration Status: Acute Assessment and Plan: Improved Fluids running Daily I/O's (7) Hx of malignant neoplasm of head and neck: Code(s): Z85.89 - Personal history of malignant neoplasm of other organs and systems Status: Chronic Assessment and Plan: S/p surgery Follow up in the outpatient setting. Subjective Date/time seen: 07/09/20 10:56 Patient states that he feels much better today. Review of Systems Review of Systems: Narrative: Patient is having significant output from PEG tube. Afebrile, no new issues.IV fluids running, NPO. Constitutional: Comments: no fevers, no chills, no rigors. Eyes: Comments: no vision changes. ENT: Comments: no ear ache, no throat pain, no nose discharge or congestion. Patient has had radical ENT surgery for Head and Neck CA. Cardiovascular: Comments: no sob, no orthopnea, no palpitations, no leg swelling. Respiratory: Comments: some cough, no sputum production. Gastrointestinal: Comments: abdominal distention and pain. Musculoskeletal: Comments: no joint swelling, no joint pain. Integumentary/Breasts: Comments: no rashes, no discoloration. Neurologic: Comments: no sensorymotor deficit. Hematologic/Lymphatic: Comments: No LAP Exam Narrative: Exam Narrative: lying in bed, confortable. Const: General: cooperative, healthy appearing, no acute distress, well developed, alert and awake Nutritional Appearance: thin Orientation/consciousness: patient oriented x3 Limitations: no limitations HENMT: Head: normocephalic Ears: hearing grossly normal bilaterally General nose exam: Normal external nose present Face and sinus: normal facial exam Mouth: Yes Normal oral and palatal mucosa present Eyes: General: appearance normal, both eyes and all related structures Pupils: Equal, round and reactive pupils present EOM: EOMs intact bilaterally Neck: Neck: no JVD and other (Radical surgery for Head and Neck CA chnges ar visible.) Thyroid: thyroid normal Lymphatic: no lymphadenopathy noted Resp: Auscultation: clear to auscultation bilaterally Cardio: Jugular venous distension: no JVD Heart sounds: S1 normal heart sound present and S2 normal heart sound present GI: Inspection: other (PEG tube in place.) GI Palp: Yes Soft to palpation and Yes No hepatosplenomegaly present Skin: General skin exam: normal color and turgor normal Lesions: no lesions Rashes: no rashes Wounds: no wounds (However PEG tube ostomy in place, some crsuting is present, no discoloratio) Neuro: General: patient oriented x3 Cranial nerves: Yes CN's II-XII intact bilaterally and Yes Equal, round and reactive pupils present Speech: normal speech Gait exam (Ne
[2020-07-09 11:59] LABS: Glucose Point of Care 82 (65-105)
--- NOTE | 2020-07-09 17:45 | PC.NURSE ---
Transfer patient received from IMU per bed. Report received from PAPITO Guerrero.
[2020-07-09] MEDS: lisinopriL 5 MG TABLET PO (17:58)
[2020-07-09 18:09] VITALS: BP 160/95; PULSE 96; RESP 18; TEMP 36.2; O2SAT 96
[2020-07-09 18:21] LABS: Glucose Point of Care 92 (65-105)
[2020-07-09 20:03] VITALS: BP 145/89; PULSE 96; RESP 16; TEMP 36.6; O2SAT 98
[2020-07-09] MEDS: PANTOPRAZOLE 40 MG TABLET PO (20:56)
[2020-07-09 21:51] LABS: Vancomycin Trough 8.4 ug/mL (10.0-20.0)
[2020-07-10] MEDS: METOCLOPRAMIDE HCL INJ 10 MG/2 ML VIAL 5 MG IV PUSH ×2 (00:18→05:41)
[2020-07-10 00:23] LABS: Glucose Point of Care 143 (65-105)
[2020-07-10] MEDS: metroNIDAZOLE 500 MG/ISO 100ML 500 MG/100 ML BAG 100 MG IVPB (04:10)
[2020-07-10] MEDS: SODIUM CHLORIDE 0.9% IV 1,000 ML 125 ML IV CONT (05:37)
[2020-07-10] MEDS: LEVOTHYROXINE SODIUM INJ 100 MCG/5 ML VIAL 25 MCG IV PUSH (05:41)
[2020-07-10 05:47] VITALS: BP 143/90; PULSE 98; RESP 18; TEMP 36.6; O2SAT 98
[2020-07-10 06:01] LABS: Glucose Point of Care 146 (65-105)
[2020-07-10 06:21] LABS: Estimated CRCL calculation 71 ml/min; Estimated Glomerular Filt Rate > 60
--- NOTE | 2020-07-10 08:36 | PM.DS ---
DS: Admitting Diagnosis Admitting Diagnosis Admitting Diagnosis: Ileus, sepsis, dehydration Patient was admitted after a couple of days after having his PEG tube exchanged. Patient presented to ED with abdominal distention, diffuse abdominal pain and discomfort on the PEG tube site.No output for the PEG tube as well. Patient's tube feeding were held and started on iv fluids. CT ABD/PEL showed some fat stranding around the tube and he was started on antibiotics for this as well. Patient was started on Reglan and his output form the PEG tube was copious. GI was consulted as well. Patient improved and was discharged home DS: Discharge Diagnosis Discharge Diagnosis (1) Postoperative ileus: Code(s): K91.89 - Other postprocedural complications and disorders of digestive system; K56.7 - Ileus, unspecified Status: Acute Assessment and Plan: Resolved. (2) Chronic anemia: Code(s): D64.9 - Anemia, unspecified Status: Chronic Assessment and Plan: Stable (3) Elevated lactic acid level: Code(s): R79.89 - Other specified abnormal findings of blood chemistry Status: Acute Assessment and Plan: Likely secondary to GI losses. (4) Dehydration: Code(s): E86.0 - Dehydration Status: Acute Assessment and Plan: Resolved after fluid resuscitation. (5) Weakness: Code(s): R53.1 - Weakness Status: Acute Assessment and Plan: Will follow up in the outpatient setting. (6) Chronic bilateral low back pain without sciatica: Code(s): M54.5 - Low back pain; G89.29 - Other chronic pain Status: Acute Assessment and Plan: Stable Continue his home meds. (7) Hx of malignant neoplasm of head and neck: Code(s): Z85.89 - Personal history of malignant neoplasm of other organs and systems Status: Chronic Assessment and Plan: S/p surgery NPO Follow up in the outpatient setting. DS: Summary Time Spent with Patient Time attestation: Total time spent providing and/or coordinating discharge services: Exam Narrative: Exam Narrative: In bed. Const: General: cooperative, healthy appearing, comfortable, alert, awake and well groomed Nutritional Appearance: average body habitus HENMT: Head: normocephalic Face and sinus: other (Head and Neck CA, s/p ENT surgery stigmata present) Mouth: Yes Normal oral and palatal mucosa present Teeth and gingiva: other (Consistent with age.) Eyes: General: appearance normal, both eyes and all related structures Pupils: Equal, round and reactive pupils present EOM: EOMs intact bilaterally Neck: Neck: no lymphadenopathy and no JVD Resp: Auscultation: clear to auscultation bilaterally Cardio: Jugular venous distension: no JVD Heart sounds: S1 normal heart sound present and S2 normal heart sound present GI: Inspection: normal to inspection and other (PEG tube in place.) GI Palp: Yes Soft to palpation and Yes No hepatosplenomegaly present Skin: General skin exam: normal color and turgor normal Lesions: no lesions Rashes: no rashes Wounds: no wounds Neuro: General: patient oriented x3 Cranial nerves: Yes CN's II-XII intact bilaterally and Yes Equal, round and reactive pupils present Cognition (Neuro): normal cognition Speech: normal speech Motor exam (neuro): 5/5 motor strength present throughout Sensory Exam: normal sensation Extrem: General: normal to inspection and full ROM Right upper extremity: normal to inspection DS: Data Data Completed and Pending Labs on day of discharge: Labs from last 24 hours 07/10/20 07/10/20 07/10/20 05:41 05:40 00:16 WBC RBC Hgb Hct MCV MCH MCHC RDW Plt Count MPV Immature Gran % (Auto) Neut % (Auto) Lymph % (Auto) Darke % (Auto) Eos % (Auto) Baso % (Auto) Lymph # (Auto) Darke # (Auto) Eos # (Auto) Baso # (Auto) Abs Immat Gran (auto) Absolute Neuts (auto) Absolute Nuclea
--- NOTE | 2020-07-10 08:44 | WPDGIPROGNO ---
Progress Note: A&P Additional Plan Patient feels much better today. Tolerating tube feedings. He denies abdominal pain. Peg tube no longer tender. Passing flatus and stool. Physical exam reveals neck deformity after had neck surgery. Lungs are clear. Heart without murmur. Abdomen bowel sounds are present soft nontender with no organomegaly. Peg tube in left upper quadrant nontender today. Impression 1. Resolved ileus. Plan is to continue tube feedings as at home. Discharge today if all agree. 2. History of neck surgery after had neck cancer. This is chronic. It interferes with eating. Plan is for discharge today of all agree. Complete one-week course of antibiotics via G-tube after discharge. For concern of occult infection or inflammation at PEG tube site. Subjective Date/time seen: 07/10/20 08:45 Objective Data Vital Signs Vital Signs: Vital Signs - 24 hr 07/09/20 18:09 07/09/20 20:03 07/10/20 05:47 Temperature 97.1 F L 98 F 97.8 F Pulse Rate 96 96 98 Respiratory Rate 18 16 18 Blood Pressure 160/95 H 145/89 H 143/90 H Pulse Oximetry 96 98 98 Intake/Output Intake/Output: Intake & Output 07/07/20 07/08/20 07/09/20 07/10/20 23:59 23:59 23:59 23:59 Intake Total 2200 2850 3050 1100 Output Total 300 2700 1475 1150 Balance 6036 894 0124 -50 Meds/Results Medications: Active Medications Generic Name Dose Route Start Last Admin Trade Name Freq PRN Reason Stop Dose Admin Dextrose 12.5 gm 07/07/20 19:51 Dextrose 50% 25 Gm/50 Ml Syringe IV PUSH PRN PRN Hypoglycemia Protocol Glucagon 1 mg 07/07/20 19:51 Glucagon For Inj 1 Mg Vial IM PRN PRN Hypoglycemia Protocol Levofloxacin/Dextrose 750 mg in 150 mls @ 100 mls/hr 07/08/20 17:00 07/09/20 19:57 Levaquin 750 Mg/D5w 150 Ml IVPB Infused Q24H DAISY Infusion Metronidazole 500 mg in 100 mls @ 100 mls/hr 07/07/20 22:00 07/10/20 05:10 Flagyl 500 Mg/Iso Soln 100 Ml IVPB Infused Q6H DAISY Infusion Sodium Chloride 1,000 mls @ 125 mls/hr 07/07/20 17:35 07/10/20 05:37 Normal Saline Iv IV CONT 125 mls/hr .Q8H DAISY Administration Dextrose 1,000 mls @ 100 mls/hr 07/07/20 19:51 Dextrose 5% 1,000 Ml IVPB PRN PRN Hypoglycemia Protocol Vancomycin HCl 1,250 mg in 250 mls @ 200 mls/hr 07/10/20 10:00 Vancomycin 1,250 Mg/D5w 250 Ml IVPB Q12H DAISY Insulin Aspart 2 - 5 units 07/08/20 00:00 07/10/20 05:40 Insulin Aspart (*Bkc) 100 Units/Ml SUB-Q Not Given Q6HR DAISY Protocol Levothyroxine Sodium 25 mcg 07/08/20 06:30 07/10/20 05:41 Levothyroxine Sodium Inj 100 Mcg/5 Ml Vial IV PUSH 25 mcg DAILY@0630 DAISY Administration Lisinopril 5 mg 07/08/20 18:00 07/09/20 17:58 Lisinopril 5 Mg Tablet PO 5 mg QPM DAISY Administration Metoclopramide HCl 5 mg 07/08/20 18:00 07/10/20 05:41 Metoclopramide Hcl Inj 10 Mg/2 Ml Vial IV PUSH 5 mg Q6HR DAISY Administration Pantoprazole Sodium 40 mg 07/08/20 21:00 07/09/20 20:56 Pantoprazole 40 Mg Tablet PO 40 mg HS DAISY Administration Radiology Results: ITS Impressions Chest X-Ray 07/07/20 14:52 IMPRESSION: 1. No acute cardiopulmonary abnormality. Abdomen/Pelvis CT 07/07/20 15:42 IMPRESSION: 1. Large amount of loose colonic stool and gas, could be ileus or gastroenteritis. Correlate for diarrhea. 2. Fat stranding along gastrostomy tract with several tiny foci of free intraperitoneal gas, could be from recent tube manipulation or placement. No abscess. 3. Collateral nephrolithiasis. Contrast Injection Evaluation 07/07/20 16:26 IMPRESSION: 1. Severely distended bowel, chronic finding. 2. Gastrostomy tube in position. Labs Labs: Laboratory Results - last 24 hr 07/09/20 07/09/20 07/09/20 09:12 09:12 11:56 WBC 5.5 RBC 3.54 L Hgb 11.3 L Hct 33.8 L MCV 95.5 MCH 31.9 MCHC 33.4 RDW 12.8 Plt Count 23
--- NOTE | 2020-07-10 14:06 | PC.NURSE ---
On 07/10/20, the student, [Barrett Nguyen [facility] clinical nursing instructor ], provided care and [facility] this patient. I have reviewed the student's documentation and agree with the findings.
== END 2020-07-10 10:15 | disposition home or self-care (01) | DRG 394 ==
LOC: ANHED 17:43 → ANHIMU 23:18 → ANH3MED 07-10 08:36 → ANHIMU 07-14 09:55
PROVIDERS: Family Medicine; Admitting Provider Internal Medicine; Emergency Provider Emergency Medicine; PCP Internal Medicine; Visit Provider Internal Medicine
DX: K91.89 Other postprocedural complications and disorders of digestive system (principal); K56.7 Ileus, unspecified; R13.12 Dysphagia, oropharyngeal phase; Z93.1 Gastrostomy status; E86.0 Dehydration; R79.89 Other specified abnormal findings of blood chemistry; M54.5 Low back pain; G89.29 Other chronic pain; D63.8 Anemia in other chronic diseases classified elsewhere; E03.9 Hypothyroidism, unspecified; E11.9 Type 2 diabetes mellitus without complications; I10 Essential (primary) hypertension; E78.5 Hyperlipidemia, unspecified; Z85.89 Personal history of malignant neoplasm of other organs and systems; Z85.46 Personal history of malignant neoplasm of prostate
CPT/HCPCS: 36415; 49465; 51701; 71045; 74177; 80048; 80053; 80202; 81001; 82565; 83605; 83690; 83735; 85025; 85610; 85730; 87040; 90471; 90715; 93005; 96361; 96365; 96367; 96368; 96375; 99285; A9270; J0131; J1956; J2270; J2405; J2765; J3370; J3475; J7030; J7040; Q9967

== ENCOUNTER → 2020-08-20 14:03 | Outpatient (CLI) | payer OTHER, SELFPAY ==
--- NOTE | ~2020-08-20 | XR_ITS ---
EXAMINATION: XR chest 2V EXAM DATE: 08/20/2020 14:18 INDICATION: Shortness of breath. TECHNIQUE: Frontal and lateral projections of the chest obtained and reviewed. Comparison is made to prior examination from 07/07/2020. FINDINGS: Elevated diaphragm with gas-filled colon below, similar appearance on prior studies. No co nfluent consolidation, pneumothorax or pleural effusion suspected. Cardiomediastinal silhouette is no rmal. 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 Mid thoracic compression fractures treated with vertebroplast y. There is no significant interval change. IMPRESSION: 1. Chronically severely distended colon. 2. Low lung volume from elevated diaphragm but otherwise unremarkable chest x-ray. Reviewed, dictated and finalized at location B. [facility] [employer] IMPRESSION: 1. Chronically severely distended colon. 2. Low lung volume from elevated diaphragm but otherwise unremarkable chest x- ray.
== END ==
PROVIDERS: PCP Internal Medicine; Visit Provider Nurse Practitioner
DX: R06.02 Shortness of breath (principal); K63.89 Other specified diseases of intestine
CPT/HCPCS: 71046

== ENCOUNTER → 2020-11-03 12:21 | Outpatient (CLI) | payer OTHER, SELFPAY ==
--- NOTE | ~2020-11-03 | CT_ITS ---
EXAMINATION: CT chest high resolution wo nj DATE: 11/03/2020 12:58 INDICATION: Shortness of breath, history of prostate and cancer TECHNIQUE: Computed tomography (CT) of the chest was performed without intravenous contrast. The dose -length product (DLP) was 206.62 mGy-cm. Automated exposure control and iterative reconstruction tech Inverted Edge were employed. COMPARISON: 02/24/2019 FINDINGS: There is mild emphysema. There is mild dependent atelectasis. Bronchiectasis is seen in the lower lobes. There is no pleural effusion or pneumothorax. No focal airspace opacity is identified. No pathologically enlarged thoracic lymph nodes are identified. The heart size is normal. Calcified c oronary artery atherosclerosis is noted. Again noted are vertebroplasty changes of the midthoracic sp ine with focal exaggerated kyphosis. There is moderate chronic gaseous distention of the colon. IMPRESSION: 1. Mild bronchiectasis in the lower lobes, likely related to prior infection. 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
== END ==
PROVIDERS: Visit Provider Internal Medicine Critical Care Medicine
DX: R06.02 Shortness of breath (principal); R91.8 Other nonspecific abnormal finding of lung field
CPT/HCPCS: 71250

== ENCOUNTER 2020-11-19 12:34 | Outpatient (CLI) | payer OTHER, SELFPAY ==
--- NOTE | 2020-11-19 12:57 | ECHO_ITS ---
Patient Info Name: Nathaniel Guardado Age: 80 years : 1940 Gender: Male Ht: 63 in Wt: 128 lbs BSA: 1.61 m2 HR: 95 bpm BP: 130 / 88 mmHg Technical Quality: Poor Exam Date: 11/19/2020 1:29 PM Exam Location: [facility] Patient Status: Outpatient Admit Date: 11/19/2020 Staff Ordering Physician: Mikki Hardy MD Derrick Boat Operator: Juan F Carranza RDCS, RT Attending Provider: Mikki Hardy MD Referring Physician: Antony HOLCOMB; Exam Type: CA echo doppler color flow Study Info Indications R06.02 - Shortness of breath Complete two-dimensional, color flow and Doppler transthoracic echocardiogram is performed. Summary 1. Complete two-dimensional, color flow and Doppler transthoracic echocardiogram is performed. 2. Technically suboptimal study due to poor sonographic windows. No subcostal images. 3. Left ventricular chamber dimension is normal. 4. Left ventricular systolic function is normal, estimated at 60-65%. 5. There is mildly increased left ventricular wall thickness. 6. The left ventricular diastolic function is grade I diastolic dysfunction. 7. E/e' 3 is not elevated. 8. The mitral valve has moderate calcified anterior leaflet. Left Ventricle Technically suboptimal study due to poor sonographic windows. No subcostal images. E/e' 3 is not elevated. Left ventricular chamber dimension is normal. Left ventricular systolic function is normal, estimated at 60-65%. There is mildly increased left ventricular wall thickness. The left ventricular diastolic function is grade I diastolic dysfunction. Right Ventricle Right ventricular systolic function is normal with normal TAPSE at 2.5 cm. Right ventricular chamber dimension is normal. Left Atria Left atrial chamber dimension is normal. Right Atria Right atrial chamber dimension is normal. Aortic Valve The aortic valve is not well visualized. Cannot determine number of aortic valve leaflets. There is no aortic valve stenosis. There is no aortic valve regurgitation. Pulmonic Valve The pulmonic valve is not well visualized. Mitral Valve The mitral valve has moderate calcified anterior leaflet. There is no mitral valve stenosis. There is no mitral valve regurgitation. Tricuspid Valve The tricuspid valve leaflets are not well visualized. Pericardium/Pleural There is no pericardial effusion. Inferior Vena Cava Inferior vena cava is not well visualized. Aorta The aortic root size at the sinus of Valsalva is not well visualized. Left Ventricular Outflow Tract Name Value Normal LVOT 2D LVOT Diameter 2.0 cm LVOT Doppler LVOT Peak Gradient 1 mmHg LVOT Mean Gradient 1 mmHg LVOT VTI 11 cm LVOT VTI/AV VTI Ratio 0.9 LVOT Stroke Volume 35 ml LVOT CO 3.4 l/min LVOT CI 2.1 l/min/m2 Mitral Valve Name Adele
--- NOTE | 2020-11-21 14:09 | WPDSIXMINUTE ---
Six Minute Walk This is a 6 minutes walk test. The test was performed and interpreted in accordance with the 2014 ERS/ATS task force guidelines. Findings: The patient's resting room air oxygen saturation measured by pulse oximetry was 91% and her heart rate was 105 bpm. Patient ambulated for 183 meters and oxygen saturation remained 87 to 94%. Heart rate at the end of the study was 113 bpm. Impression: Patient does qualify for oxygen with ambulation and a formal home O2 assessment should be considered. There are no prior studies for comparison.
--- NOTE | 2020-11-21 14:17 | P.PCNPFT_ITS ---
PFT Interpretation This is a pulmonary function test with pre and post-bronchodilator spirometry and plethysmography. Of note, the patient was unable to complete the DLCO ma neuver due to difficulty with the breath hold. The test was performed and results interpreted in accordance with the 2019 and 2005 ATS/ERS Task Force guidelines respectively using the Eusebio/Aimee reference equations. Findings: Spirometry: There is mildly decreased maximal expiratory airflow at low lung volumes with a mildly concave expiratory flow tracing. The contour of the inspiratory flow tracing is normal. The pre bronchodilator FVC is 2.05 L, 66% predicted. The pre bronchodilator FEV1 is 1.56 L, 77% predicted. The FEV1: FVC ratio is 76%. The post bronchodilator FVC is 2.51 L, representing a 22% increase. The post bronchodilator FEV1 is 1.72 L, representing a 10% increase. Plethysmography: The total lung capacity is 7.17 L, 152% predicted. Functional residual capacity is 5.38 L, 179% predicted. The residual volume is 5.04 L, 229% predicted. Impression: There is decreased maximal expiratory airflow at low lung volumes with a normal FEV1. This pattern is suggestive of small airways disease. There is significant improvement after inhaling a single dose of albuterol. The increase in residual volume is consistent with air trapping from an obstructive abnormality. Hyperinflation is present is demonstrated by the increase in functional residual capacity and total lung capacity and is consistent with an obstructive abnormality. There are no prior studies for comparison
== END 2020-11-19 12:35 | disposition home or self-care (01) ==
PROVIDERS: PCP Internal Medicine; Visit Provider Internal Medicine Critical Care Medicine
DX: R06.02 Shortness of breath (principal)
CPT/HCPCS: 93306; 94060; 94618; 94726; 94729

== ENCOUNTER 2021-04-28 02:08 | Day surgery (SDC) | payer OTHER, SELFPAY ==
[2021-04-16 10:31] VITALS: BMI 23.4
[2021-04-28 07:44] VITALS: BP 147/85; PULSE 103; RESP 18; TEMP 36.2; O2SAT 97; BMI 22.9
[2021-04-28 08:01] LABS: Glucose Point of Care 108 mg/dl (65-105)
--- NOTE | 2021-04-28 08:12 | WPDANESEPPF ---
Anes - Initial Pre Proc Eval Procedure: Operation Date: 04/28/21 08:45 Proposed Procedures p Removal & Replacement of G-Tube, - Vipul Leal MD s Possible Esophagogastroduodenoscopy - Vipul Leal MD Date/Time: 04/28/21 08:12 Surgeon: Vipul Leal MD Pre Op Diagnosis: malfunctioning g-tube Patient Data Age: 80 Gender: M Height: 1.6 m Weight: 58.7 kg Last Vital Signs Temp 36.2 C L 04/28/21 07:44 Pulse 103 H 04/28/21 07:44 Resp 18 04/28/21 07:44 BP 147/85 H 04/28/21 07:44 Pulse Ox 97 04/28/21 07:44 Allergies Allergy/AdvReac Type Severity Reaction Status Date / Time Penicillins Allergy Mild Rash Verified 04/28/21 07:43 Home Medications Medication Instructions Recorded Confirmed Type aspirin 81 mg PO QPM 08/08/19 04/16/21 History calcium carbonate [Calcium 600] 600 mg PO BID 08/08/19 04/16/21 History cholecalciferol (vitamin D3) 1,000 unit PO QPM 08/08/19 04/16/21 History [Vitamin D3] hydrocodone-acetaminophen 1 tablet PO TID PRN 08/08/19 04/16/21 History ondansetron 4 mg disintegrating 4 mg PO Q6H PRN #10 tablet 10/03/19 04/16/21 Rx tablet vitamin B complex [Super B-50 1 cap PO QPM 07/01/20 04/16/21 History Complex] blood sugar diagnostic #50 ea 08/05/20 01/14/21 Rx lisinopril 5 mg tablet 5 mg PO QPM #90 tablet 12/02/20 04/16/21 Rx omeprazole 40 mg capsule,delayed 40 mg PO QPM #90 cap 12/03/20 04/16/21 Rx release budesonide-formoterol HFA 80 2 puff INHALATION Q12H #10.2 g 12/17/20 04/16/21 Rx mcg-4.5 mcg/actuation aerosol inhaler glipizide 2.5 mg PO DAILY 04/16/21 04/16/21 History levothyroxine 50 mcg PO DAILY 04/16/21 04/16/21 History metformin 1,000 mg PO BID 04/16/21 04/16/21 History simvastatin 20 mg PO DAILY 04/16/21 04/16/21 History Laboratory Tests 04/28/21 07:58 POC Capillary Glucose 108 mg/dl H mg/dl (65-105) Patient hx anesthesia problems: none Family hx anesthesia problems: none PMFSH Past Medical History Medical History (Updated 04/28/21 @ 08:15 by Phil Rodriguez MD) Adult hypothyroidism Asthma with COPD Cancer Diabetes Essential (primary) hypertension HTN (hypertension) Hypercholesterolemia Hyperlipidemia LDL goal <70 Type 2 diabetes mellitus without complication, without long-term current use of insulin Surgical History Surgical History S/P percutaneous endoscopic gastrostomy (PEG) tube placement Family History Family History Father Acute myocardial infarction Congestive heart failure Hypertension Mother Hypertension Social History Social History Smoking status: Never smoker Second hand tobacco smoke exposure: Yes (distant history) Alcohol intake: never Substance use: never Substance use type: does not use Living arrangements: with family Spiritual care concerns: No Anes - Eval Final PreProcedure Day of Procedure 04/28/21 08:12 Patient weight: obese Heart: regular rate and rhythm Lungs: clear to auscultation and normal air movement Airway: Mallampati scale class II Neurological: alert and oriented Last oral intake: >/= 8 hours ASA classification: III Emergent: no Anesthetic plan: proceed Anesthesia type and monitoring: general GIVS Informed Consent: The patient's anesthetic plan and its attendant risks and benefits were discussed with the patient/family/POA. Questions were solicited and answers provided to the satisfaction of the patient/family/POA.
--- NOTE | 2021-04-28 08:17 | WPDGICN ---
Assessment and Plan Assessment and plan (1) Gastrostomy status: Code(s): Z93.1 - Gastrostomy status Status: Acute Assessment and Plan: Peg tube has deteriorated and will require endoscopic replacement. (2) Hx of malignant neoplasm of head and neck: Code(s): Z85.89 - Personal history of malignant neoplasm of other organs and systems Status: Chronic Assessment and Plan: Patient with history of head and neck cancer status post surgery in currently unable to swallow safely requires PEG tube for nutrition. (3) Pharyngoesophageal dysphagia: Code(s): R13.14 - Dysphagia, pharyngoesophageal phase Status: Acute (4) PEG (percutaneous endoscopic gastrostomy) adjustment/replacement/removal: Code(s): Z43.1 - Encounter for attention to gastrostomy Status: Acute GI Consult Note Consult date/time: 04/28/21 08:17 HPI: Nathaniel Guardado is a 80 year old male Presents because of malfunctioning G-tube. Patient has a history head and neck cancer. He has been unable to swallow safely orally and requires a PEG tube. Patient has had difficulty previously with PEG tube in replace PEG tubes. He does not tolerate the internal balloon bumper replacement G tubes. At the time of patient's last G-tube replacement previous G-tube was removed with traction patient's of subsequently had ileus required hospitalization for several days. Patient presents today for endoscopic G-tube replacement. Old G-tube has deteriorated and is not functioning appropriately. Review of Systems Review of Systems: All systems reviewed & are unremarkable except as noted in HPI and below PMFSH Past Medical History Medical History (Updated 04/28/21 @ 08:15 by Phil Rodriguez MD) Adult hypothyroidism Asthma with COPD Cancer Diabetes Essential (primary) hypertension HTN (hypertension) Hypercholesterolemia Hyperlipidemia LDL goal <70 Type 2 diabetes mellitus without complication, without long-term current use of insulin Surgical History Surgical History S/P percutaneous endoscopic gastrostomy (PEG) tube placement Family History Family History Father Acute myocardial infarction Congestive heart failure Hypertension Mother Hypertension Social History Social History Smoking status: Never smoker Second hand tobacco smoke exposure: Yes (distant history) Alcohol intake: never Substance use: never Substance use type: does not use Living arrangements: with family Spiritual care concerns: No Meds Home Medications and Allergies Home Medications Medication Instructions Recorded Confirmed Type aspirin 81 mg PO QPM 08/08/19 04/16/21 History calcium carbonate [Calcium 600] 600 mg PO BID 08/08/19 04/16/21 History cholecalciferol (vitamin D3) 1,000 unit PO QPM 08/08/19 04/16/21 History [Vitamin D3] hydrocodone-acetaminophen 1 tablet PO TID PRN 08/08/19 04/16/21 History ondansetron 4 mg disintegrating 4 mg PO Q6H PRN #10 tablet 10/03/19 04/16/21 Rx tablet vitamin B complex [Super B-50 1 cap PO QPM 07/01/20 04/16/21 History Complex] blood sugar diagnostic #50 ea 08/05/20 01/14/21 Rx lisinopril 5 mg tablet 5 mg PO QPM #90 tablet 12/02/20 04/16/21 Rx omeprazole 40 mg capsule,delayed 40 mg PO QPM #90 cap 12/03/20 04/16/21 Rx release budesonide-formoterol HFA 80 2 puff INHALATION Q12H #10.2 g 12/17/20 04/16/21 Rx mcg-4.5 mcg/actuation aerosol inhaler glipizide 2.5 mg PO DAILY 04/16/21 04/16/21 History levothyroxine 50 mcg PO DAILY 04/16/21 04/16/21 History metformin 1,000 mg PO BID 04/16/21 04/16/21 History simvastatin 20 mg PO DAILY 04/16/21 04/16/21 History Allergies Allergy/AdvReac Type Severity Reaction Status Date / Time Penicillins Allergy Mild Rash Verified 04/28/21 07:43 Vital Signs Vital Signs -
[2021-04-28] MEDS: LACTATED RINGERS 1,000 ML 150 ML IV CONT (08:24)
[2021-04-28 09:09] VITALS: BP 176/116; PULSE 89; RESP 20; O2SAT 97
[2021-04-28 09:19] VITALS: BP 159/107; PULSE 90; RESP 20; O2SAT 97
[2021-04-28 09:29] VITALS: BP 160/105; PULSE 90; RESP 20; O2SAT 97
== END 2021-04-28 09:45 | disposition home or self-care (01) ==
PROVIDERS: PCP Internal Medicine; Visit Provider Internal Medicine Gastroenterology
PROC: 0DH63UZ Insertion of Feeding Device into Stomach, Percutaneous Approach (ICD-10-PCS; CPT 43246; principal; 2021-04-28 08:45)
PROC: 0DJ08ZZ Inspection of Upper Intestinal Tract, Via Natural or Artificial Opening Endoscopic (ICD-10-PCS; CPT 43235; 2021-04-28 08:45)
DX: K94.23 Gastrostomy malfunction (principal); R13.14 Dysphagia, pharyngoesophageal phase; Z85.89 Personal history of malignant neoplasm of other organs and systems; I10 Essential (primary) hypertension; E11.9 Type 2 diabetes mellitus without complications; E78.5 Hyperlipidemia, unspecified; J44.9 Chronic obstructive pulmonary disease, unspecified; E03.9 Hypothyroidism, unspecified; Z79.82 Long term (current) use of aspirin; Z79.84 Long term (current) use of oral hypoglycemic drugs; Z79.51 Long term (current) use of inhaled steroids; E66.9 Obesity, unspecified; Y83.8 Other surgical procedures as the cause of abnormal reaction of the patient, or of later complication, without mention of misadventure at the time of the procedure
CPT/HCPCS: 43246; 82948; J2001; J2704; J7120

== ENCOUNTER → 2021-09-16 08:43 | Outpatient (CLI) | payer OTHER, SELFPAY ==
--- NOTE | ~2021-09-16 | CT_ITS ---
EXAMINATION: CT soft tissue neck wo con DATE: 09/16/2021 09:11 INDICATION: Dysphonia. Feeling of something being stuck in his throat. TECHNIQUE: Computed tomography (CT) of the neck was performed without intravenous contrast. Automated exposure control and iterative reconstruction technique were employed. The dose-length product was 3 51.23 mGy-cm. COMPARISON: Neck CT 08/09/2005 FINDINGS: There is mild scarring at left lung apex. Calcified mediastinal lymph nodes are consistent with old granulomatous disease. There are surgical clips in left neck. There is fat stranding in the neck, consistent with changes of surgery and radiation therapy. There are no pathologically enlarged lymph nodes. There is ectasia of ascending aorta measuring 4.5 cm. There are bilateral mastoid effusi ons. There is moderate cervical spondylosis. 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 IMPRESSION: 1. No specific etiology for the patient's symptoms. 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
== END ==
PROVIDERS: PCP Internal Medicine; Visit Provider Nurse Practitioner
DX: R49.0 Dysphonia (principal); S22.051A Stable burst fracture of T5-T6 vertebra, initial encounter for closed fracture; R13.10 Dysphagia, unspecified; Z85.89 Personal history of malignant neoplasm of other organs and systems; M47.812 Spondylosis without myelopathy or radiculopathy, cervical region; I77.819 Aortic ectasia, unspecified site
CPT/HCPCS: 70490

== ENCOUNTER 2021-09-26 07:38 | Emergency (ER) | payer OTHER, SELFPAY ==
[2021-09-26 08:05] VITALS: BP 95/75; PULSE 108; RESP 16; TEMP 36.9; O2SAT 95
--- NOTE | 2021-09-26 08:27 | ED.GENADULT ---
HPI - General Adult General Chief complaint: Unspecified Stated complaint: feeding tube clogged up Time Seen by Provider: 09/26/21 08:14 Source: RN notes reviewed History of Present Illness HPI narrative: Patient presents emergency department from home for clogged feeding tube. Patient states that the feeding tube has not been working since last night states that it was working during the day yesterday. Feeding tube is been present for the past 2 and half years. States that he takes nothing orally. He denies any abdominal pain denies any fevers or chills nausea vomiting or any other symptoms Related Data Home Medications Medication Instructions Recorded Confirmed aspirin 81 mg PO QPM 08/08/19 08/11/21 calcium carbonate [Calcium 600] 600 mg PO BID 08/08/19 08/11/21 cholecalciferol (vitamin D3) 1,000 unit PO QPM 08/08/19 08/11/21 [Vitamin D3] hydrocodone-acetaminophen 1 tablet PO TID PRN 08/08/19 08/11/21 vitamin B complex [Super B-50 1 cap PO QPM 07/01/20 08/11/21 Complex] Allergies Allergy/AdvReac Type Severity Reaction Status Date / Time Penicillins Allergy Mild Rash Verified 09/08/21 07:28 Review of Systems Review of Systems: Gen.: Denies fevers or chills ENT: Denies congestion Respiratory: Denies shortness of breath or cough CV: Denies chest pain GI: Denies abdominal pain nausea, emesis or diarrhea reports clogged feeding Musculoskeletal: Denies back pain or muscle pain Neuro: Denies headache Skin: Denies rash Except as documented, all other systems reviewed and negative FOR[facility]LY [facility] Past Medical History Medical History Adult hypothyroidism Asthma with COPD Cancer Diabetes Essential (primary) hypertension HTN (hypertension) Hypercholesterolemia Hyperlipidemia LDL goal <70 Type 2 diabetes mellitus without complication, without long-term current use of insulin Surgical History Surgical History S/P percutaneous endoscopic gastrostomy (PEG) tube placement Family History Family History Father Acute myocardial infarction Congestive heart failure Hypertension Mother Hypertension Social History Social History (Reviewed 01/01/22 @ 08:28 by AKTHY Christianson Second hand tobacco smoke exposure: Yes (distant history) Alcohol intake: never Substance use: never Substance use type: does not use Spiritual care concerns: No Exam Narrative: APPEARANCE: No acute distress, nontoxic, resting in bed EYES: EOMI HEENT: Normocephalic, atraumatic, OMM RESPIRATORY: No respiratory distress Clear to auscultation bilaterally with no rhonchi wheezing or rales. CARDIOVASCULAR: Regular rate and rhythm without murmurs rubs or gallops. ABDOMINAL: Soft, nontender, nondistended, no rebound or guarding PEG tube in left upper quadrant no surrounding erythema or signs of infection MUSCULOSKELETAl: Moves all extremities. NEURO: Awake and alert. Following commands, speech normal, no focal deficits SKIN:: Warm, dry. No rashes lesions or abrasions PSYCHIATRIC: Normal affect/mood, Course Course Emergency Course: Patient's PEG tube unclogged by nursing staff ready for discharge Discussed with patient results of workup and diagnosis. Discussed need for follow-up with primary care, proper use of medication, and reasons to return to the emergency department. Patient understands and agrees to current treatment plan Vital Signs Vital signs: Vital Signs Temperature 98.5 F 09/26/21 08:05 Pulse Rate 108 H 09/26/21 08:05 Respiratory Rate 16 09/26/21 08:05 Blood Pressure 95/75 L 09/26/21 08:05 Pulse Oximetry 95 09/26/21 08:05 Temperature 98.5 F 09/26/21 08:05 Pulse Rate 97 09/26/21 09:33 Respiratory Rate 22 H 09/26/21 09:33 Blood Pressure 140/94 H 09/26/21 09:33 Pulse Oximetry 97 09/26/21 09:33 Medical Decision Making V
--- NOTE | 2021-09-26 09:26 | PC.NURSE ---
irrigated G tube w/ normal saline per EDP [place]. pt's G tube now flushes with no issues.
[2021-09-26 09:33] VITALS: BP 140/94; PULSE 97; RESP 22; O2SAT 97
[2021-09-26 10:00] VITALS: BP 161/94; PULSE 96; RESP 18; O2SAT 99
== END 2021-09-26 10:04 | disposition home or self-care (01) ==
PROVIDERS: Emergency Provider Emergency Medicine; PCP Internal Medicine
DX: T85.598A Other mechanical complication of other gastrointestinal prosthetic devices, implants and grafts, initial encounter (principal); E03.9 Hypothyroidism, unspecified; J44.9 Chronic obstructive pulmonary disease, unspecified; E11.9 Type 2 diabetes mellitus without complications; I10 Essential (primary) hypertension; E78.5 Hyperlipidemia, unspecified; Z79.82 Long term (current) use of aspirin; Z79.891 Long term (current) use of opiate analgesic
CPT/HCPCS: 99284

== ENCOUNTER 2022-01-26 00:12 | Day surgery (SDC) | payer OTHER, SELFPAY ==
[2022-01-20 14:07] VITALS: BMI 24.8
[2022-01-26 12:10] LABS: Glucose Point of Care 137 mg/dl (65-105)
[2022-01-26 12:13] VITALS: BP 138/87; PULSE 116; RESP 18; TEMP 37.1; O2SAT 96
--- NOTE | 2022-01-26 12:17 | WPDGICN ---
Assessment and Plan Assessment and plan (1) PEG (percutaneous endoscopic gastrostomy) adjustment/replacement/removal: Code(s): Z43.1 - Encounter for attention to gastrostomy Status: Acute Assessment and Plan: Patient presents today for PEG tube replacement. He has had difficulty with typical extraction of this tube causing an ileus in the past. For this reason PEG replacement will be done endoscopically. (2) Pharyngoesophageal dysphagia: Code(s): R13.14 - Dysphagia, pharyngoesophageal phase Status: Acute Assessment and Plan: Patient has dysphagia after previous head and neck surgery. This requires PEG tube for nutrition. (3) Hx of malignant neoplasm of head and neck: Code(s): Z85.89 - Personal history of malignant neoplasm of other organs and systems Status: Chronic GI Consult Note Consult date/time: 01/26/22 12:17 HPI: Nathaniel Guardado is a 81 year old male Presents for PEG replacement. Patient has a history of head neck cancer. Because of this he is unable to eat or swallow safely. He has had a percutaneous endoscopic gastrostomy tube placement many years ago. Typically he does well with PEG tube feedings. At 1 interval within the last several years patient had PEG tube removed with external traction and subsequently had an ileus for several days requiring hospitalization. For this reason his most recent PEG tube replacement in April of 2021 was performed endoscopically and he has done well. In the intervening months however the PEG tube itself has deteriorated. His falling apart no longer useful. Patient presents today for PEG tube replacement. This will be performed endoscopically. Review of Systems Review of Systems: All systems reviewed & are unremarkable except as noted in HPI and below PMFSH Past Medical History Medical History Adult hypothyroidism Asthma with COPD Cancer Diabetes Essential (primary) hypertension HTN (hypertension) Hypercholesterolemia Hyperlipidemia LDL goal <70 Type 2 diabetes mellitus without complication, without long-term current use of insulin Surgical History Surgical History S/P percutaneous endoscopic gastrostomy (PEG) tube placement Family History Family History Father Acute myocardial infarction Congestive heart failure Hypertension Mother Hypertension Social History Social History (Updated 11/23/21 @ 08:04 by Dary Merritt) Smoking status: Never smoker Second hand tobacco smoke exposure: Yes (distant history) Alcohol intake: never Substance use: never Substance use type: does not use Living arrangements: with family Spiritual care concerns: No Meds Home Medications and Allergies Home Medications Medication Instructions Recorded Confirmed Type aspirin 81 mg PO QPM 08/08/19 01/26/22 History calcium carbonate [Calcium 600] 600 mg PO BID 08/08/19 01/26/22 History cholecalciferol (vitamin D3) 1,000 unit PO QPM 08/08/19 01/26/22 History [Vitamin D3] hydrocodone-acetaminophen 1 tablet PO TID PRN 08/08/19 01/26/22 History ondansetron 4 mg disintegrating 4 mg PO Q6H PRN #10 tablet 10/03/19 01/26/22 Rx tablet vitamin B complex [Super B-50 1 cap PO QPM 07/01/20 01/26/22 History Complex] blood sugar diagnostic #50 ea 08/05/20 01/26/22 Rx metformin 1,000 mg tablet 1,000 mg PO BID #180 tablet 05/18/21 01/26/22 Rx albuterol sulfate 90 mcg/actuation 1 - 2 inh INHALATION Q4-6H PRN 06/10/21 01/26/22 Rx aerosol inhaler #8.5 g budesonide 160 mcg-glycopyr 9 2 inh INHALATION QAM AND QPM #10.7 08/12/21 01/26/22 Rx mcg-formot 4.8 mcg/actuation HFA g inhaler lisinopril 5 mg tablet 5 mg PO QPM #90 tablet 11/19/21 01/26/22 Rx levothyroxine 50 mcg tablet 50 mcg PO DAILY #90 tablet 11/25/21 01/26/22 Rx omeprazole 40 mg PO DAILY
[2022-01-26] MEDS: LACTATED RINGERS 1,000 ML 150 ML IV CONT (12:20)
--- NOTE | 2022-01-26 12:55 | WPDANESEPPF ---
Anes - Initial Pre Proc Eval Procedure: Operation Date: 01/26/22 13:00 Proposed Procedures p Replacement Of Gastrostomy Tube - Vipul Leal MD Date/Time: 01/26/22 12:55 Surgeon: Vipul Leal MD Pre Op Diagnosis: malfunctioning g-tube Patient Data Age: 81 Gender: M Height: 1.57 m Weight: 58.7 kg Last Vital Signs Temp 98.7 F 01/26/22 12:13 Pulse 116 H 01/26/22 12:13 Resp 18 01/26/22 12:13 BP 138/87 01/26/22 12:13 Pulse Ox 96 01/26/22 12:13 Allergies Allergy/AdvReac Type Severity Reaction Status Date / Time Penicillins Allergy Mild Rash Verified 01/26/22 12:11 Home Medications Medication Instructions Recorded Confirmed Type aspirin 81 mg PO QPM 08/08/19 01/26/22 History calcium carbonate [Calcium 600] 600 mg PO BID 08/08/19 01/26/22 History cholecalciferol (vitamin D3) 1,000 unit PO QPM 08/08/19 01/26/22 History [Vitamin D3] hydrocodone-acetaminophen 1 tablet PO TID PRN 08/08/19 01/26/22 History ondansetron 4 mg disintegrating 4 mg PO Q6H PRN #10 tablet 10/03/19 01/26/22 Rx tablet vitamin B complex [Super B-50 1 cap PO QPM 07/01/20 01/26/22 History Complex] blood sugar diagnostic #50 ea 08/05/20 01/26/22 Rx metformin 1,000 mg tablet 1,000 mg PO BID #180 tablet 05/18/21 01/26/22 Rx albuterol sulfate 90 mcg/actuation 1 - 2 inh INHALATION Q4-6H PRN 06/10/21 01/26/22 Rx aerosol inhaler #8.5 g budesonide 160 mcg-glycopyr 9 2 inh INHALATION QAM AND QPM #10.7 08/12/21 01/26/22 Rx mcg-formot 4.8 mcg/actuation HFA g inhaler lisinopril 5 mg tablet 5 mg PO QPM #90 tablet 11/19/21 01/26/22 Rx levothyroxine 50 mcg tablet 50 mcg PO DAILY #90 tablet 11/25/21 01/26/22 Rx omeprazole 40 mg PO DAILY 01/20/22 01/26/22 History simvastatin 20 mg tablet 20 mg PO DAILY #90 tablet 01/21/22 01/26/22 Rx Laboratory Tests 01/26/22 12:08 POC Capillary Glucose 137 mg/dl H mg/dl (65-105) Patient hx anesthesia problems: none Family hx anesthesia problems: none Results Review: All pre-operative results and documents have been reviewed as part of the pre-operative evaluation. [facility] Past Medical History Medical History Adult hypothyroidism Asthma with COPD Cancer Diabetes Essential (primary) hypertension HTN (hypertension) Hypercholesterolemia Hyperlipidemia LDL goal <70 Type 2 diabetes mellitus without complication, without long-term current use of insulin Surgical History Surgical History S/P percutaneous endoscopic gastrostomy (PEG) tube placement Family History Family History Father Acute myocardial infarction Congestive heart failure Hypertension Mother Hypertension Social History Social History (Updated 11/23/21 @ 08:04 by Dary Merritt) Smoking status: Never smoker Second hand tobacco smoke exposure: Yes (distant history) Alcohol intake: never Substance use: never Substance use type: does not use Living arrangements: with family Spiritual care concerns: No Anes - Eval Final PreProcedure Day of Procedure 01/26/22 12:55 Patient weight: thin Heart: regular rate and rhythm Lungs: clear to auscultation Airway: Mallampati scale class III Neurological: alert and oriented Last oral intake: >/= 8 hours ASA classification: IV Emergent: no Anesthetic plan: proceed Anesthesia type and monitoring: general GIVS and standard monitoring Results Review: All pre-operative results and documents have been reviewed as part of the pre-operative evaluation. Informed Consent: The patient's anesthetic plan and its attendant risks and benefits were discussed with the patient/family/POA. Questions were solicited and answers provided to the satisfaction of the patient/family/POA.
[2022-01-26 14:15] VITALS: BP 161/109; PULSE 93; RESP 18; O2SAT 96
[2022-01-26 14:25] VITALS: BP 170/106; PULSE 89; RESP 19; O2SAT 96
--- NOTE | 2022-01-26 14:29 | SUR.PHASEII ---
RN notified LEGISLATIVE CORRESPONDENT of elevated BP
[2022-01-26 14:35] VITALS: BP 149/101; PULSE 89; RESP 20; O2SAT 98
--- NOTE | 2022-01-26 14:36 | SUR.PHASEII ---
RN notified BERTHA Wu and Dr. Posadas of patient's elevated BP. Dr. Posadas stated the patient is safe to discharge and asked the patient to take his medications when he gets home. RN to discharge patient.
[2022-01-26 14:38] VITALS: BP 146/101; PULSE 91; O2SAT 99
== END 2022-01-26 15:00 | disposition home or self-care (01) ==
PROVIDERS: PCP Internal Medicine; Visit Provider Internal Medicine Gastroenterology
PROC: 0DH63UZ Insertion of Feeding Device into Stomach, Percutaneous Approach (ICD-10-PCS; CPT 43246; principal; 2022-01-26 13:00)
DX: Z43.1 Encounter for attention to gastrostomy (principal); K22.2 Esophageal obstruction; R13.14 Dysphagia, pharyngoesophageal phase; J44.9 Chronic obstructive pulmonary disease, unspecified; I10 Essential (primary) hypertension; E03.9 Hypothyroidism, unspecified; E11.9 Type 2 diabetes mellitus without complications; E78.00 Pure hypercholesterolemia, unspecified; E78.5 Hyperlipidemia, unspecified; Z85.89 Personal history of malignant neoplasm of other organs and systems
CPT/HCPCS: 43246; 82948; C1726; J2704; J7120

== ENCOUNTER 2022-08-31 01:21 | Day surgery (SDC) | payer OTHER, SELFPAY ==
[2022-08-24 12:59] VITALS: BMI 26.6
--- NOTE | 2022-08-31 10:42 | WPDANESEPPF ---
Anes - Initial Pre Proc Eval Procedure: Operation Date: 08/31/22 12:30 Proposed Procedures p Esophagogastroduodenoscopy EGD - Vipul Leal MD s Removal & Replacement of G-Tube - Vipul Leal MD Date/Time: 08/31/22 10:42 Surgeon: Vipul Leal MD Pre Op Diagnosis: Malfunctioning G-tube Patient Data Age: 81 Gender: M Height: 1.7 m Weight: 77.2 kg Allergies Allergy/AdvReac Type Severity Reaction Status Date / Time Penicillins Allergy Mild Rash Verified 08/31/22 11:26 Home Medications Medication Instructions Recorded Confirmed Type aspirin 81 mg tablet,delayed 81 mg PO QPM 08/08/19 08/24/22 History release calcium carbonate 600 mg calcium 600 mg PO BID 08/08/19 08/24/22 History (1,500 mg) tablet (Calcium) cholecalciferol (vitamin D3) 25 1,000 unit PO QPM 08/08/19 08/24/22 History mcg (1,000 unit) capsule (Vitamin D3) hydrocodone 7.5 mg-acetaminophen 1 tablet PO TID PRN Pain 08/08/19 08/24/22 History 325 mg tablet ondansetron 4 mg disintegrating 4 mg PO Q6H PRN nausea and 10/03/19 08/24/22 Rx tablet vomiting #10 tabs vitamin B complex (Super B-50 1 cap PO QPM 07/01/20 08/24/22 History Complex capsule) blood sugar diagnostic (Contour #50 ea 08/05/20 07/13/22 Rx Test Strips) omeprazole 40 mg capsule,delayed 40 mg PO DAILY 01/20/22 08/24/22 History release metformin 1,000 mg tablet 1,000 mg PO BID #180 tabs 02/08/22 08/24/22 Rx budesonide 160 mcg-glycopyr 9 See Rx Instructions .Route 02/23/22 08/24/22 Rx mcg-formot 4.8 mcg/actuation HFA .COMPLEX #10.7 ea inhaler (Breztri Aerosphere) lisinopril 5 mg tablet 5 mg PO QPM #90 tabs 05/17/22 08/24/22 Rx levothyroxine 50 mcg tablet 50 mcg PO DAILY #90 tabs 05/21/22 08/24/22 Rx simvastatin 20 mg tablet 20 mg PO DAILY #90 tabs 07/16/22 08/24/22 Rx albuterol sulfate 90 mcg/actuation 1 - 2 inh inhalation Q4-6H PRN 07/22/22 08/24/22 Rx aerosol inhaler shortness of breath or wheezing #8.5 grams Patient hx anesthesia problems: none Family hx anesthesia problems: none Results Review: All pre-operative results and documents have been reviewed as part of the pre-operative evaluation. [facility] Past Medical History Medical History (Updated 08/31/22 @ 11:49 by Vipul Leal MD) Adult hypothyroidism Asthma with COPD CAD (coronary artery disease) Cancer Diabetes Essential (primary) hypertension History of tongue cancer HTN (hypertension) Hypercholesterolemia Hyperlipidemia LDL goal <70 [place] (obstructive sleep apnea) Type 2 diabetes mellitus without complication, without long-term current use of insulin Surgical History Surgical History (Updated 08/31/22 @ 10:44 by Erasmo Guevara DO) Coronary angioplasty status S/P percutaneous endoscopic gastrostomy (PEG) tube placement Family History Family History Father Acute myocardial infarction Congestive heart failure Hypertension Mother Hypertension Social History Social History Smoking status: Never smoker Second hand tobacco smoke exposure: Yes (distant history) Alcohol intake: never Substance use: never Substance use type: does not use Spiritual care concerns: No Anes - Eval Final PreProcedure Day of Procedure 08/31/22 10:42 Patient weight: overweight Heart: regular rate and rhythm Lungs: clear to auscultation Airway: Mallampati scale class III Neurological: alert and oriented Last oral intake: >/= 8 hours ASA classification: IV Emergent: no Anesthetic plan: proceed Anesthesia type and monitoring: general GIVS and standard monitoring Results Review: All pre-operative results and documents have been reviewed as part of the pre-operative evaluation. Informed Consent: The patient's anesthetic plan and its attendant risks and benefits were discussed with the patient/family/POA. Questions were solicited and ans
[2022-08-31 11:27] VITALS: BP 146/89; PULSE 106; RESP 20; TEMP 36.1; O2SAT 100
[2022-08-31 11:34] LABS: Glucose Point of Care 141 mg/dl (65-105)
[2022-08-31] MEDS: LACTATED RINGERS 1,000 ML 150 ML IV CONT (11:37)
--- NOTE | 2022-08-31 11:46 | PM.HPGS ---
History of Present Illness History of Present Illness Consent: Risks, benefits, and alternatives have been discussed and questions answered. Patient agrees to proceed with procedure. Chief complaint: Malfunctioning G-tube Narrative: Nathaniel Guardado is a 81 year old male Presents today for PEG tube replacement. Patient has a distant history of head and neck, throat cancer. He has required PEG tube feedings for nutrition. Patient has previously had difficulties with external removed oral of the PEG tube and replacement with PEG tube with internal bumper. Most recent replacement of PEG tube 6 months ago required endoscopic replacement. This was complicated by the finding of a distal esophageal stricture. This required balloon dilatation to accomplish the procedure. At the present time his current PEG tube appears markedly deteriorated externally. The rubber appears to be deteriorating. Patient presents today for replacement of this PEG tube. He wishes endoscopic replacement of the original endoscopic type PEG tube. Review of Systems Review of Systems: Review of systems noncontributory. [facility] Past Medical History Medical History (Updated 08/31/22 @ 11:49 by Vipul Leal MD) Adult hypothyroidism Asthma with COPD CAD (coronary artery disease) Cancer Diabetes Essential (primary) hypertension History of tongue cancer HTN (hypertension) Hypercholesterolemia Hyperlipidemia LDL goal <70 [place] (obstructive sleep apnea) Type 2 diabetes mellitus without complication, without long-term current use of insulin Surgical History Surgical History (Updated 08/31/22 @ 10:44 by Erasmo Guevara DO) Coronary angioplasty status S/P percutaneous endoscopic gastrostomy (PEG) tube placement Family History Family History Father Acute myocardial infarction Congestive heart failure Hypertension Mother Hypertension Social History Social History Smoking status: Never smoker Second hand tobacco smoke exposure: Yes (distant history) Alcohol intake: never Substance use: never Substance use type: does not use Spiritual care concerns: No Meds Home Medications and Allergies Home Medications Medication Instructions Recorded Confirmed Type aspirin 81 mg tablet,delayed 81 mg PO QPM 08/08/19 08/24/22 History release calcium carbonate 600 mg calcium 600 mg PO BID 08/08/19 08/24/22 History (1,500 mg) tablet (Calcium) cholecalciferol (vitamin D3) 25 1,000 unit PO QPM 08/08/19 08/24/22 History mcg (1,000 unit) capsule (Vitamin D3) hydrocodone 7.5 mg-acetaminophen 1 tablet PO TID PRN Pain 08/08/19 08/24/22 History 325 mg tablet ondansetron 4 mg disintegrating 4 mg PO Q6H PRN nausea and 10/03/19 08/24/22 Rx tablet vomiting #10 tabs vitamin B complex (Super B-50 1 cap PO QPM 07/01/20 08/24/22 History Complex capsule) blood sugar diagnostic (Contour #50 ea 08/05/20 07/13/22 Rx Test Strips) omeprazole 40 mg capsule,delayed 40 mg PO DAILY 01/20/22 08/24/22 History release metformin 1,000 mg tablet 1,000 mg PO BID #180 tabs 02/08/22 08/24/22 Rx budesonide 160 mcg-glycopyr 9 See Rx Instructions .Route 02/23/22 08/24/22 Rx mcg-formot 4.8 mcg/actuation HFA .COMPLEX #10.7 ea inhaler (Breztri Aerosphere) lisinopril 5 mg tablet 5 mg PO QPM #90 tabs 05/17/22 08/24/22 Rx levothyroxine 50 mcg tablet 50 mcg PO DAILY #90 tabs 05/21/22 08/24/22 Rx simvastatin 20 mg tablet 20 mg PO DAILY #90 tabs 07/16/22 08/24/22 Rx albuterol sulfate 90 mcg/actuation 1 - 2 inh inhalation Q4-6H PRN 07/22/22 08/24/22 Rx aerosol inhaler shortness of breath or wheezing #8.5 grams Allergies Allergy/AdvReac Type Severity Reaction Status Date / Time Penicillins Allergy Mild Rash Verified 08/31/22 11:26 Vital Signs Vital Signs - 24 hr 08/31/22 11:27 Temperature 97.0 F L Pulse Ra
[2022-08-31 12:46] VITALS: BP 117/77; PULSE 84; RESP 21; O2SAT 100
[2022-08-31 12:56] VITALS: BP 128/75; PULSE 87; RESP 20; O2SAT 100
[2022-08-31 13:06] VITALS: BP 138/91; PULSE 85; RESP 23; O2SAT 100
== END 2022-08-31 13:44 | disposition home or self-care (01) ==
PROVIDERS: PCP Internal Medicine; Visit Provider Internal Medicine Gastroenterology
PROC: 0DJ08ZZ Inspection of Upper Intestinal Tract, Via Natural or Artificial Opening Endoscopic (ICD-10-PCS; CPT 43235; principal; 2022-08-31 12:30)
PROC: 0DH63UZ Insertion of Feeding Device into Stomach, Percutaneous Approach (ICD-10-PCS; CPT 43246; 2022-08-31 12:30)
DX: K94.23 Gastrostomy malfunction (principal); Y83.3 Surgical operation with formation of external stoma as the cause of abnormal reaction of the patient, or of later complication, without mention of misadventure at the time of the procedure; I25.10 Atherosclerotic heart disease of native coronary artery without angina pectoris; I10 Essential (primary) hypertension; E11.9 Type 2 diabetes mellitus without complications; E78.5 Hyperlipidemia, unspecified; E03.9 Hypothyroidism, unspecified; J44.9 Chronic obstructive pulmonary disease, unspecified; G47.33 Obstructive sleep apnea (adult) (pediatric); Z85.810 Personal history of malignant neoplasm of tongue; Z79.82 Long term (current) use of aspirin; Z79.84 Long term (current) use of oral hypoglycemic drugs; Z79.51 Long term (current) use of inhaled steroids
CPT/HCPCS: 43246; 82948; 99213; G0463; J2704; J7120